=== PATIENT | male | born 1995 | race Caucasian/White ===

== ENCOUNTER 2017-11-14 21:49 | Inpatient (IN) | payer MEDICAID ==
[2017-11-14 22:07] VITALS: BP 134/60; PULSE 108; RESP 16; O2SAT 98
--- NOTE | 2017-11-14 22:29 | RADRPT ---
EXAM DATE/TIME: 11/14/2017 22:14 [facility] COMPARISON: No previous studies available for comparison. INDICATIONS : Seizure. RADIATION DOSE: 56.35 CTDIvol (mGy) MEDICAL HISTORY : None SURGICAL HISTORY : None. ENCOUNTER: Initial ACUITY: 1 day PAIN SCALE: 0/10 LOCATION: cranial TECHNIQUE: Multiple contiguous axial images were obtained of the head. Using automated exposure control and adj ustment of the mA and/or kV according to patient size, radiation dose was kept as low as reasonably a chievable to obtain optimal diagnostic quality images. DICOM format image data is available electro nically for review and comparison. FINDINGS: CEREBRUM: The ventricles are normal for age. No evidence of midline shift, mass lesion, hemorrhage or acute in farction. No extra-axial fluid collections are seen. POSTERIOR FOSSA: The cerebellum and brainstem are intact. The 4th ventricle is midline. The cerebellopontine angle i s unremarkable. EXTRACRANIAL: The visualized portion of the orbits is intact. SKULL: The calvaria is intact. No evidence of skull fracture. CONCLUSION: 1. Negative noncontrast CT brain. Rodolfo Medley MD on November 14, 2017 at 22:27 Board Certified Radiologist. This report was verified electronically.
[2017-11-14 22:40] VITALS: TEMP 97.9
--- NOTE | 2017-11-14 22:44 | RADRPT ---
EXAM DATE/TIME: 11/14/2017 22:14 [facility] COMPARISON: No previous studies available for comparison. INDICATIONS : Trauma, fall. Left eye bruising. RADIATION DOSE: 21.96 CTDIvol (mGy) MEDICAL HISTORY : None SURGICAL HISTORY : None. ENCOUNTER: Initial ACUITY: 1 day PAIN SCORE: 4/10 LOCATION: Left orbit. TECHNIQUE: Volumetric scanning of the orbits was performed. Using automated exposure control and adjustment of the mA and/or kV according to patient size, radiation dose was kept as low as reasonably achievable t o obtain optimal diagnostic quality images. DICOM format image data is available electronically for review and comparison. FINDINGS: There is focal soft tissue thickening adjacent to the lateral margin of the left orbital globe, prese ptal in location, measuring 8 mm. No indentation or deformity of the globe. The extraocular muscles , optic nerve, and retroconal fat is symmetric and normal in appearance. The bony structures about t he orbit are intact. No evidence of fracture. Inferior orbital wall is intact. CONCLUSION: 8mm area of soft tissue thickening adjacent to the lateral aspect of the preseptal left orbital globe . No fracture seen. Rodolfo Medley MD on November 14, 2017 at 22:40 Board Certified Radiologist. This report was verified electronically.
--- NOTE | 2017-11-14 22:46 | RADRPT ---
EXAM DATE/TIME: 11/14/2017 22:14 [facility] COMPARISON: No previous studies available for comparison. INDICATIONS : Trauma, fall. RADIATION DOSE: 26.90 CTDIvol (mGy) MEDICAL HISTORY : None SURGICAL HISTORY : None. ENCOUNTER: Initial ACUITY: 1 day PAIN SCALE: 0/10 LOCATION: neck TECHNIQUE: Volumetric scanning of the cervical spine was performed. Multiplanar reconstructions in the sagittal, coronal and oblique axial planes were performed. Using automated exposure control and adjustment o f the mA and/or kV according to patient size, radiation dose was kept as low as reasonably achievable to obtain optimal diagnostic quality images. DICOM format image data is available electronically f or review and comparison. FINDINGS: There is straightening of the cervical lordosis. Vertebral body height is maintained. No evidence o f spondylolisthesis. Posterior elements are normal alignment without evidence of locked or perched f acets. The spinous processes are intact. The atlantoaxial articulation is intact. C2-C3: No fracture seen. The neural foramen are patent. C3-C4: No fracture seen. The neural foramen are patent. C4-C5: No fracture seen. The neural foramen are patent. C5-C6: No fracture seen. The neural foramen are patent. C6-C7: No fracture seen. The neural foramen are patent. C7-T1: No fracture seen. The neural foramen are patent. CONCLUSION: Straightening of the cervical lordosis. Otherwise negative trauma CT cervical spine. Rodolfo Medley MD on November 14, 2017 at 22:42 Board Certified Radiologist. This report was verified electronically.
[2017-11-14] MEDS ORDERED: LORazepam 2 MG/ML VIAL ONE (23:20)
[2017-11-14 23:27] VITALS: BP 146/63; PULSE 107; RESP 16; O2SAT 96
--- NOTE | 2017-11-14 23:38 | PD ---
HPI Chief Complaint: Seizure Time Seen by Provider: 21:57 Travel History International Travel<30 days: No Contact w/Intl Traveler<30days: No Traveled to known affect area: No History of Present Illness HPI Patient is a 22-year-old male whose here on spring apparently he is friends were with him drinking all day and they did not see him for a while found him with a black eye intoxicated and sleeping hotel room that apparently they went back out to drink some more patient had another's witnessed seizure this time and comes the ER postictal confused c-collar. also has a new tattoo on his arm that he was unaware that he had but he is still postictal. There is a Tegaderm over the tattoo. Patient has the sign of trauma to his face and that is the only injury seen otherwise he is mildly lethargic from assuming that he is postictal CT head neck and face will be done to rule out any intracranial injury or cervical spine injury. PFSH Past Medical History Diminished Hearing: No Tetanus Vaccination: Unknown Past Surgical History Neurologic Surgery: Yes (seizure) Social History Alcohol Use: Yes Tobacco Use: No Substance Use: No Allergies-Medications (Allergen,Severity, Reaction): Coded Allergies: No Known Allergies (Verified Allergy, Unknown, 11/15/17) Reported Meds & Prescriptions Reported Meds & Active Scripts Active Reported Vimpat (Lacosamide) 200 Mg Tab 200 Mg PO BID Briviact (Brivaracetam) 100 Mg Tab 200 Mg PO BID Review of Systems ROS Limitations: Poor Historian, Other: (postictal) Except as stated in HPI: all other systems reviewed are Neg Physical Exam Narrative GENERAL: Patient's left eyelid is swollen purple discoloration SKIN: Warm and dry. HEAD: +traumatic apparently to the left orbit area .. Normocephalic. EYES: Pupils equal and round. No scleral icterus. No injection or drainage. ENT: No nasal bleeding or discharge. Mucous membranes pink and moist. NECK: Trachea midline. No JVD. CARDIOVASCULAR: Regular rate and rhythm. RESPIRATORY: No accessory muscle use. Clear to auscultation. Breath sounds equal bilaterally. GASTROINTESTINAL: Abdomen soft, non-tender, nondistended. Hepatic and splenic margins not palpable. MUSCULOSKELETAL: Extremities without clubbing, cyanosis, or edema. No obvious deformities. NEUROLOGICAL: Awake and alert. No obvious cranial nerve deficits. Motor grossly within normal limits. Five out of 5 muscle strength in the arms and legs. Normal speech. PSYCHIATRIC: Appropriate mood and affect; insight and judgment normal. Data Data Last Documented VS Vital Signs Date Time Temp Pulse Resp B/P (MAP) Pulse Ox O2 Delivery O2 Flow Rate FiO2 11/15/17 05:39 107 18 123/64 (83) 98 Nasal Cannula 2.00 11/14/17 22:[address] Brain W/O Iv Contrast(Rout) (11/14/17 ) Ct Cerv Spine W/O Contrast (11/14/17 ) Ct Orbits W/O Iv Contrast (11/14/17 ) Lorazepam Inj (Ativan Inj) (11/14/17 23:20) Ondansetron Inj (Zofran Inj) (11/15/17 05:31) Levetiracetam Inj (Keppra Inj) (11/15/17 06:00) Complete Blood Count With Diff (11/15/17 05:54) Comprehensive Metabolic Panel (11/15/17 05:54) Lipase (11/15/17 05:54) Magnesium (Mg) (11/15/17 05:54) Phosphorus (Po4) (11/15/17 05:54) Admit Order (Ed Use Only) (11/15/17 06:01) Place In Observation (11/15/17 ) Vital Signs (Adult) Q4H (11/15/17 05:57) Activity Bed Rest With Brp (11/15/17 ) Neuro Checks Q4H (11/15/17 05:57) Diet Regular Basic (11/15/17 Breakfast) Sodium Chloride 0.9% Flush (Ns Flush) (11/15/17 06:00) Sodium Chloride 0.9% Flush (Ns Flush) (11/15/17 09:00) Lorazepam Inj (Ativan Inj) (11/15/17 06:00) Acetaminophen (Tylenol) (11/15/17 06:00) Complete Blood Count With Diff (11/16/17 06:00) Alcohol (Ethanol) (11/15/17 05:57) Drug Screen, Random Urine (11/15/17 05:57) Consult Neurology (11/15/17 ) ^ Seizure Precautions (11/15/17 05:57) Levetiracetam (Keppra) (11/15/17 21:00) Creatine Kinase (Cpk) (11/15/17 05:54) CKMB (11/15/17 06:00) CKMB% (11/15/17 06:00) Labs Laboratory Tests Test 11/15/17 06:00 White Blood Count 21.6 TH/MM3 Red Blood Count 5.37 MIL/MM3 Hemoglobin 16.2 GM/DL Hematocrit 48.4 % Mean Corpuscular Volume 90.0 FL Mean Corpuscular Hemoglobin 30.3 PG Mean Corpuscular Hemoglobin Concent 33.6 % Red Cell Distribution Width 13.4 % Platelet Count 359 TH/MM3 Mean Platelet Volume 9.0 FL Neutrophils (%) (Auto) 78.6 % Lymphocytes (%) (Auto) 15.6 % Monocytes (%) (Auto) 4.9 % Eosinophils (%) (Auto) 0.5 % Basophils (%) (Auto) 0.4 % Neutrophils # (Auto) 16.9 TH/MM3 Lymphocytes # (Auto) 3.4 TH/MM3 Monocytes # (Auto) 1.1 TH/MM3 Eosinophils # (Auto) 0.1 TH/MM3 Basophils # (Auto) 0.1 TH/MM3 CBC Comment AUTO DIFF Differential Total Cells Counted 100 Neutrophils % (Manual) 68 % Band Neutrophils % 2 % Lymphocytes % 14 % Monocytes % 7 % Eosinophils % 1 % Neutrophils # (Manual) 16.8 TH/MM3 Metamyelocytes 5 % Myelocytes 3 % Differential Comment FINAL DIFF MANUAL Platelet Estimate NORMAL Platelet Morphology Comment NORMAL Blood Urea Nitrogen 10 MG/DL Creatinine 1.34 MG/DL Random Glucose 154 MG/DL Total Protein 8.1 GM/DL Albumin 4.6 GM/DL Calcium Level 8.5 MG/DL Phosphorus Level 5.3 MG/DL Magnesium Level 2.9 MG/DL Alkaline Phosphatase 101 U/L Aspartate Amino Transf (AST/SGOT) 75 U/L Alanine Aminotransferase (ALT/SGPT) 79 U/L Total Bilirubin 0.2 MG/DL Sodium Level 136 MEQ/L Potassium Level 3.6 MEQ/L Chloride Level 99 MEQ/L Carbon Dioxide Level 11.9 MEQ/L Anion Gap 25 MEQ/L Estimat Glomerular Filtration Rate 67 ML/MIN Total Creatine Kinase 2264 U/L Creatine Kinase MB 2.5 NG/ML Creatine Kinase MB % 0.1 % Lipase 74 U/L Valproic Acid (Depakene) Level 5 MCG/ML Ethyl Alcohol Level LESS THAN 3 MG/DL MDM Medical Decision Making Medical Screen Exam Complete: Yes Emergency Medical Condition: Yes Differential Diagnosis recurrent seizure for epilepsy vs etoh withdrawal stimulantion of seizure vs head trauma induction of seizures ,other electrolyte imbalnce of seizures recrrunt , med non compliance causing seizure Narrative Course CT HEAD FACE CERVICAL ON ARRIVAL TO R/O trauma intracranial injury causing seizures , observed and given ativan when he seized again in the ER , then loaded with keppra and admitted for observation to assure no status epilepticus , I ordered labs to rule out electrolyte imbalance and cpk on admission to rule out muscle breakdown from recurrent seizures admit observation Diagnosis Primary Impression: Recurrent seizures Admitting Information Admitting Physician Requests: Observation Scripts Divalproex ER (Depakote ER) 500 Mg Dung 500 MG PO HS for Seizure Control, #30 TAB Prov: Bryanna Dodson PA-C 11/16/17 Morteza Ward MD Nov 14, 2017 23:38
[2017-11-15] VITALS (9 sets, daily range): BP systolic 116–143; BP diastolic 57–98; PULSE 83–108; RESP 16–20; TEMP 97.2–101.2; O2SAT 97–99
[2017-11-15] MEDS ORDERED: ONDANSETRON HCL 4 MG/2 ML VIAL ONE (05:31)
[2017-11-15] MEDS ORDERED: levETIRAcetam INJ 500 MG in SODIUM CHLORIDE 0.9% INJ 100 ML IV ONE (06:00)
[2017-11-15] MEDS ORDERED: LORazepam 2 MG/ML VIAL IV PUSH PRN (06:00)
[2017-11-15] MEDS ORDERED: SODIUM CHLORIDE 0.9% FLUSH 10 ML FLUSH IV FLUSH PRN (06:00)
[2017-11-15 06:10] LABS: AUTOMATED NEUTROPHIL # 16.9 TH/MM3 (1.8-7.7); BASOPHIL # 0.1 TH/MM3 (0-0.2); BASOPHIL % 0.4 % (0.0-2.0); EOSINOPHIL # 0.1 TH/MM3 (0-0.4); EOSINOPHIL % 0.5 % (0.0-4.0); HEMATOCRIT 48.4 % (39.0-51.0); HEMOGLOBIN 16.2 GM/DL (13.0-17.0); LYMPH % 15.6 % (9.0-44.0); LYMPHOCYTE # 3.4 TH/MM3 (1.0-4.8); MEAN CORPUSCULAR HEMOGLOBIN 30.3 PG (27.0-34.0); MEAN CORPUSCULAR HGB CONC 33.6 % (32.0-36.0); MONO % 4.9 % (0.0-8.0); MONOCYTE # 1.1 TH/MM3 (0-0.9); NEUT % 78.6 % (16.0-70.0); PLATELET COUNT 359 TH/MM3 (150-450); RED BLOOD COUNT 5.37 MIL/MM3 (4.50-5.90); RED CELL DISTRIBUTION WIDTH 13.4 % (11.6-17.2); WHITE BLOOD COUNT 21.6 TH/MM3 (4.0-11.0)
[2017-11-15 06:44] LABS: PHOSPHORUS 5.3 MG/DL (2.5-4.9)
[2017-11-15 06:47] LABS: ALBUMIN 4.6 GM/DL (3.4-5.0); ALT (GPT) 79 U/L (12-78); AST (GOT) 75 U/L (15-37); BICARBONATE 11.9 MEQ/L (21.0-32.0); BLOOD UREA NITROGEN 10 MG/DL (7-18); CALCIUM 8.5 MG/DL (8.5-10.1); CHLORIDE 99 MEQ/L (98-107); CREATININE 1.34 MG/DL (0.60-1.30); GLOMERULAR FILTRATION RATE 67 ML/MIN (>89); GLUCOSE,RANDOM 154 MG/DL (74-106); MAGNESIUM 2.9 MG/DL (1.5-2.5); SODIUM (NA) 136 MEQ/L (136-145)
[2017-11-15] MEDS ORDERED: BRIV1TAB7 PO (06:57)
[2017-11-15 06:58] LABS: ALKALINE PHOSPHATASE 101 U/L (45-117); TOTAL BILIRUBIN ADULT 0.2 MG/DL (0.2-1.0); TOTAL PROTEIN 8.1 GM/DL (6.4-8.2)
[2017-11-15] MEDS ORDERED: VIMP200T PO (06:59)
[2017-11-15 07:01] LABS: BANDS 2 % (0-6); LYMPHOCYTES 14 % (9-44); METAMYELOCYTES 5 % (0-1); MONOCYTES 7 % (0-8); MYELOCYTES 3 % (0-0); NEUTROPHIL # MANUAL DIFF 16.8 TH/MM3 (1.8-7.7); POLYS (SEG NEUTROPHILS) 68 % (16-70)
[2017-11-15] MEDS ORDERED: DIVALPROEX SODIUM E.R. 500 MG TAB PO STA (08:17)
[2017-11-15] MEDS: SODIUM CHLOR 0.9% 1000 ML INJ 1,000 ML IV SCH ×2 (08:57→19:15)
[2017-11-15] MEDS: ACETAMINOPHEN 325 MG TAB PO PRN ×2 (08:57→22:02)
[2017-11-15] MEDS ORDERED: BRIVARACETAM 200 MG PO SCH ×2 (09:00)
[2017-11-15] MEDS ORDERED: [UNRECOGNIZED DRUG - OTHER] PO SCH (09:00)
--- NOTE | 2017-11-15 09:19 | MB ---
cc: Victor Manuel Patel MD DATE OF CONSULT: 11/15/2017 HISTORY OF PRESENT ILLNESS: He is a 22-year-old left-handed man with a history of seizures for the last few years, per his grandmother who lives in [place]. He generally lives in [place] but is here on spring. Yesterday, he was drinking on the beach with friends. Then he was found blacked out in the hotel room and had a bruise over the left eye. He then went back out apparently and was drinking again and had a witnessed seizure and then was brought to the hospital. He does admit to smoking some marijuana. He generally drinks socially but is here on spring so he is drinking more excessively than normal. He lives with his grandparents in [place], although he does have some family in [place]. His family history is negative for cancer or stroke. He said that his mother does have a history of seizures. He was following with a neurologist up in [place] but has had controlled seizures since onset. His last seizure was 10/16 and before that 10/10. He is scheduled to go to the [facility] next week for an inpatient study. He is currently on brivaracetam 200 mg twice a day and Vimpat 200 mg twice a day. He does not remember most of the events from yesterday and states that he did feel like he bit his tongue, however. MEDICATIONS AT HOME: Already listed, the brivaracetam 200 mg twice a day and Vimpat twice a day. VITAL SIGNS: Most recent, he is febrile 101.2, heart rate 108, blood pressure 124/59, pulse ox 98% on room air. On exam, heart rate regular rate and rhythm. I do not detect a murmur, carotid bruit. Visual liang were full. Extraocular movements are intact without nystagmus. Face is symmetric. Tongue is midline. There is no drift. Strength is 5/5 in the upper and lower extremities bilaterally. DTRs were 2+ in the bilateral lower extremities, 1+ in the upper extremities bilaterally. Toes withdrew bilaterally. There was clonus. Tone was normal throughout. Pinprick and vibratory senses intact throughout. He is not intact on finger to nose. Did not observe the gait. He is not aphasic at this time. He just takes a little while to answer questions as he states he is very tired. LABORATORIES: CBC: White count is 21.6, otherwise normal. UA tox screen is negative. CMP: Creatinine 1.34, AST 75, ALT 79. Creatine kinase 2264. IMAGING: CT of the cervical spine was negative. CT of the brain is negative. The orbit CT shows no fracture of the left eye. IMPRESSION: He is having breakthrough seizures although he has not had his medications changed in over a year, he states. We will add on Depakote and also do an EEG and MRI of the brain. Will also add on some fluids with the elevated CPK. We will keep him overnight as his white count is elevated and his temperature. Dictated by KJ Knight MD SHANELLE Humphrey/NATALYA , 08:21 AM , 09:06 AM
[2017-11-15] MEDS: SODIUM CHLORIDE 0.9% FLUSH 10 ML FLUSH IV FLUSH SCH ×2 (09:21→21:00)
[2017-11-15] MEDS: LACOSAMIDE 100 MG TAB PO SCH ×2 (09:21→21:59)
[2017-11-15] MEDS ORDERED: GADODIAMIDE PF 287 MG/ML 5 ML VIAL (for RAD MRI) IV PUSH ONE (12:00)
--- NOTE | 2017-11-15 12:52 | HHI.HP ---
HPI Service [facility] Primary Care Physician Unknown Admission Diagnosis recurrent seizures Diagnoses: Chief Complaint: seizures Travel History International Travel<30 Days: No Contact w/Intl Traveler <30 Da: No Traveled to Known Affected Are: No Sepsis Criteria SIRS Criteria (2 or more): Temp > 100.9 or < 96.8, Heart rate over 90, WBC > 12555, < 4000 or > 10% bands Criteria Outcome: Meets SIRS criteria History of Present Illness Written by Bryanna Dodson, acting as scribe for Dr. Villarreal on 11/15/17 at 12:51. 22-year-old male with history of seizures presents with seizure activity x2. The patient is visiting from [place] for spring. He has been drinking alcohol most of the week. Yesterday his friends reported he was sleeping in the room most of the day. They found him with a black eye. His friends were able to wake him to go out to dinner, then later had a witnessed tonic clonic seizure. His friends report patient was confused after the seizure. He was reportedly postictal upon arrival to the ED and noted to have tongue ecchymosis. He is now AAOx4. He reports compliance with his seizure medications. Last seizure 1 month ago while he was in the gym, no medication adjustments at that time. He reports nausea and vomiting x3 last night. He reports recently he has been feeling well, and denies any recent headache, neck pain, cough, congestion, fever/chills, chest pain, abdominal pain, nausea/vomiting, or urinary complaints. He follows with a neurologist in [place]. Review of Systems Except as stated in HPI: all other systems reviewed are Neg Past Family Social History Past Medical History Seizures Past Surgical History Knee surgery Reported Medications Vimpat (Lacosamide) 200 Mg Tab 200 Mg PO BID Briviact (Brivaracetam) 100 Mg Tab 200 Mg PO BID Allergies: Coded Allergies: No Known Allergies (Verified Allergy, Unknown, 11/15/17) Active Ordered Medications Current Medications Medications (Trade) Dose Ordered Sig/Yanira Route Start Time Stop Time Status Last Admin (NS Flush) 2 ml UNSCH PRN IV FLUSH 3/9/18 06:00 (NS Flush) 2 ml BID IV FLUSH 11/15/17 09:00 11/15/17 09:21 (Ativan Inj) 2 mg Q10M PRN IV PUSH 11/15/17 06:00 11/15/17 06:17 (Tylenol) 650 mg Q4H PRN PO 11/15/17 06:00 11/15/17 08:57 (Vimpat) 200 mg BID PO 11/15/17 09:00 11/15/17 09:21 Non-Formulary Medication PTOWN-BRIVARACETAM 200MG PO DAILY DAILY PO 11/15/17 09:00 Future Hold (Depakote Er) 500 mg HS PO 11/15/17 21:00 Sodium Chloride 1,000 ml @ 100 mls/hr Q10H IV 11/15/17 09:00 11/15/17 08:57 Family History Mother with epilepsy Social History Denies tobacco use Drinks alcohol, mostly social binge drinking, but not every day Denies any illicit drug use Physical Exam Vital Signs Vital Signs Date Time Temp Pulse Resp B/P (MAP) Pulse Ox O2 Delivery O2 Flow Rate FiO2 11/15/17 11:38 83 20 136/69 (91) 97 Room Air 11/15/17 10:00 18 11/15/17 07:48 101.2 108 20 124/59 (80) 98 11/15/17 05:39 107 18 123/64 (83) 98 Nasal Cannula 2.00 11/15/17 01:43 101 16 118/57 (77) 98 Nasal Cannula 2.00 11/15/17 00:46 98 16 116/67 (83) 98 Nasal Cannula 2.00 11/14/17 23:27 107 16 146/63 (90) 96 Nasal Cannula 2.00 11/14/17 22:40 97.9 11/14/17 22:15 Room Air 11/14/17 22:07 108 16 134/60 (84) 98 Room Air Physical Exam GENERAL: Well-nourished, well-developed young male patient in [facility]. SKIN: Warm and dry. Skin desquamation/peeling on the back. Sunburnt skin throughout. HEAD: Normocephalic. Atraumatic. EYES: Pupils equal and round. EOMI. Left periorbital ecchymosis, mostly at left upper eyelid. No scleral icterus. No injection or drainage. ENT: No nasal bleeding or discharge. Mucous membranes pink and moist. NECK: Supple. Trachea midline. CARDIOVASCULAR: Regular rate and rhythm. S1, S2 noted. No murmur appreciated. RESPIRATORY: No accessory muscle use. Clear to auscultation. Breath sounds equal bilaterally. GASTROINTESTINAL: Abdomen soft, non-tender, nondistended. Normoactive bowel sounds x4. MUSCULOSKELETAL: No obvious deformities. Extremities without clubbing, cyanosis , or edema. NEUROLOGICAL: Awake and alert. No obvious cranial nerve deficits. Motor grossly within normal limits. 5/5 muscle strength in bilateral upper and lower extremities. Normal speech. PSYCHIATRIC: Appropriate mood and affect; insight and judgment normal. Laboratory Laboratory Tests Test 11/15/17 06:00 11/15/17 07:00 White Blood Count 21.6 Red Blood Count 5.37 Hemoglobin 16.2 Hematocrit 48.4 Mean Corpuscular Volume 90.0 Mean Corpuscular Hemoglobin 30.3 Mean Corpuscular Hemoglobin Concent 33.6 Red Cell Distribution Width 13.4 Platelet Count 359 Mean Platelet Volume 9.0 Neutrophils (%) (Auto) 78.6 Lymphocytes (%) (Auto) 15.6 Monocytes (%) (Auto) 4.9 Eosinophils (%) (Auto) 0.5 Basophils (%) (Auto) 0.4 Neutrophils # (Auto) 16.9 Lymphocytes # (Auto) 3.4 Monocytes # (Auto) 1.1 Eosinophils # (Auto) 0.1 Basophils # (Auto) 0.1 CBC Comment AUTO DIFF Differential Total Cells Counted 100 Neutrophils % (Manual) 68 Band Neutrophils % 2 Lymphocytes % 14 Monocytes % 7 Eosinophils % 1 Neutrophils # (Manual) 16.8 Metamyelocytes 5 Myelocytes 3 Differential Comment FINAL DIFF MANUAL Platelet Estimate NORMAL Platelet Morphology Comment NORMAL Blood Urea Nitrogen 10 Creatinine 1.34 Random Glucose 154 Total Protein 8.1 Albumin 4.6 Calcium Level 8.5 Phosphorus Level 5.3 Magnesium Level 2.9 Alkaline Phosphatase 101 Aspartate Amino Transf (AST/SGOT) 75 Alanine Aminotransferase (ALT/SGPT) 79 Total Bilirubin 0.2 Sodium Level 136 Potassium Level 3.6 Chloride Level 99 Carbon Dioxide Level 11.9 Anion Gap 25 Estimat Glomerular Filtration Rate 67 Total Creatine Kinase 2264 Creatine Kinase MB 2.5 Creatine Kinase MB % 0.1 Lipase 74 Valproic Acid (Depakene) Level 5 Ethyl Alcohol Level LESS THAN 3 Urine Opiates Screen NEG Urine Barbiturates Screen NEG Urine Amphetamines Screen NEG Urine Benzodiazepines Screen NEG Urine Cocaine Screen NEG Urine Cannabinoids Screen NEG Result Diagram: 11/15/17 0600 11/15/17 0600 Imaging Last Impressions Brain MRI 11/15/17 0000 Signed Impressions: Service Date/Time: Wednesday, November 15, 2017 12:09 - CONCLUSION: 1. Normal examination. Juan David Kearney MD Orbit CT 11/14/17 0000 Signed Impressions: Service Date/Time: November 22:14 - CONCLUSION: 8mm area of soft tissue thickening adjacent to the lateral aspect of the preseptal left orbital globe. No fracture seen. Rodolfo Medley MD Head CT 11/14/17 0000 Signed Impressions: Service Date/Time: November 22:14 - CONCLUSION: 1. Negative noncontrast CT brain. Rodolfo Medley MD Cervical Spine CT 11/14/17 0000 Signed Impressions: Service Date/Time: November 22:14 - CONCLUSION: Straightening of the cervical lordosis. Otherwise negative trauma CT cervical spine. Rodolfo Medley MD Caprini VTE Risk Assessment Caprini VTE Risk Assessment: No/Low Risk (score <= 1) Caprini Risk Assessment Model Point Value = 1 Point Value = 2 Point Value = 3 Point Value = 5 Age 41-60 Minor surgery BMI > 25 kg/m2 Swollen legs Varicose veins or History of unexplained or recurrent spontaneous Oral contraceptives or hormone replacement Sepsis (< 1 month) Serious lung disease, including pneumonia (< 1 month) Abnormal pulmonary function Acute myocardial infarction Congestive heart failure (< 1 month) History of inflammatory bowel disease Medical patient at bed rest Age 61-74 Arthroscopic surgery Major open surgery (> 45 min) Laparoscopic surgery (> 45 min) Malignancy Confined to bed (> 72 hours) Immobilizing plaster cast Central venous access Age >= 75 History of VTE Family history of VTE Factor V Leiden Prothrombin [id number] Lupus anticoagulant Anticardiolipin antibodies Elevated serum homocysteine Heparin-induced thrombocytopenia Other congenital or acquired thrombophilia Stroke (< 1 month) Elective arthroplasty Hip, pelvis, or leg fracture Acute spinal cord injury (< 1 month) Prophylaxis Regimen Total Risk Factor Score Risk Level Prophylaxis Regimen 0-1 Low Early ambulation 2 Moderate Order ONE of the following: *Sequential Compression Device (SCD) *Heparin 5000 units SQ BID 3-4 Higher Order ONE of the following medications: *Heparin 5000 units SQ TID *Enoxaparin/Lovenox 40 mg SQ daily (WT < 150 kg, CrCl > 30 mL/min) *Enoxaparin/Lovenox 30 mg SQ daily (WT < 150 kg, CrCl > 10-29 mL/min) *Enoxaparin/Lovenox 30 mg SQ BID (WT < 150 kg, CrCl > 30 mL/min) AND/OR *Sequential Compression Device (SCD) 5 or more Highest Order ONE of the following medications: *Heparin 5000 units SQ TID (Preferred with Epidurals) *Enoxaparin/Lovenox 40 mg SQ daily (WT < 150 kg, CrCl > 30 mL/min) *Enoxaparin/Lovenox 30 mg SQ daily (WT < 150 kg, CrCl > 10-29 mL/min) *Enoxaparin/Lovenox 30 mg SQ BID (WT < 150 kg, CrCl > 30 mL/min) AND *Sequential Compression Device (SCD) Assessment and Plan Problem List: (1) Recurrent seizures ICD Code: G40.909 - Epilepsy, unspecified, not intractable, without status epilepticus (2) Rhabdomyolysis ICD Code: M62.82 - Rhabdomyolysis (3) SIRS (systemic inflammatory response syndrome) ICD Code: R65.10 - Systemic inflammatory response syndrome (SIRS) of non- infectious origin without acute organ dysfunction Assessment and Plan 22-year-old male with history of seizures presents with seizure activity x2. The patient is visiting from [place] for spring. Recurrent Seizures with hx of Seizure Disorder: suspect exacerbated by recent alcohol binge. Patient reports compliance with medications. -Head CT and Brain MRI images reviewed, no acute findings -C-spine CT with no acute findings -Left Orbit CT with 8mm area of soft tissue thickening adjacent to lateral aspect of preseptal left orbital globe; no fracture -EEG ordered -Neurology consulted -Continue patient's Briviact and Vimpat -Depakote 500mg hs added by neurology -Neuro checks, seizure precautions -Patient counseled on seizure precautions; patient does not drive Rhabdomyolysis: suspect secondary to seizures -CPK 2264 --> 4458 -Give IVF -Check UA SIRS: patient meets SIRS criteria with WBC 21.6, temp 101.2, tachycardia HR 108. Need to rule out infectious source however no symptoms to suggest. SIRS may be secondary to seizure activity. -Check UA and CXR -Monitor CBC and vitals Alcohol Use: chronic -counseled on cessation, especially with seizures as above Transaminitis: no previous labs to compare. Suspect secondary to recent alcohol use -continue IVF -avoid alcohol -LFTs trending down DVT Prophylaxis: teds/SCDs Discussed Condition With This note was transcribed by giorgio Dodson. I, Dr. Ritchie Villarreal personally performed the history, physical exam, and medical decision making; and confirmed the accuracy of the information in the transcribed note. Authenticated by Dr. Ritchie Villarreal on 11/15/17 at 12:54. Bryanna Dodson PA-C Nov 15, 2017 12:52 Ritchie Villarreal MD Nov 15, 2017 12:54
[2017-11-15 13:34] LABS: AUTOMATED NEUTROPHIL # 14.6 TH/MM3 (1.8-7.7); BASOPHIL % 0.1 % (0.0-2.0); HEMOGLOBIN 14.5 GM/DL (13.0-17.0); LYMPHOCYTE # 1.4 TH/MM3 (1.0-4.8); MEAN CELL VOLUME 86.3 FL (80.0-100.0); MEAN CORPUSCULAR HEMOGLOBIN 29.8 PG (27.0-34.0); MEAN CORPUSCULAR HGB CONC 34.5 % (32.0-36.0); MEAN PLATELET VOLUME 8.3 FL (7.0-11.0); MONO % 11.1 % (0.0-8.0); NEUT % 80.8 % (16.0-70.0); PLATELET COUNT 305 TH/MM3 (150-450); RED BLOOD COUNT 4.86 MIL/MM3 (4.50-5.90); RED CELL DISTRIBUTION WIDTH 13.2 % (11.6-17.2); WHITE BLOOD COUNT 18.1 TH/MM3 (4.0-11.0)
[2017-11-15 13:56] LABS: ALBUMIN 4.1 GM/DL (3.4-5.0); ALT (GPT) 64 U/L (12-78); AST (GOT) 72 U/L (15-37); BICARBONATE 21.3 MEQ/L (21.0-32.0); BLOOD UREA NITROGEN 13 MG/DL (7-18); CALCIUM 7.5 MG/DL (8.5-10.1); CHLORIDE 105 MEQ/L (98-107); CREATININE 1.29 MG/DL (0.60-1.30); GLOMERULAR FILTRATION RATE 70 ML/MIN (>89); GLUCOSE,RANDOM 79 MG/DL (74-106); MAGNESIUM 2.6 MG/DL (1.5-2.5); SODIUM (NA) 137 MEQ/L (136-145)
--- NOTE | 2017-11-15 14:07 | RADRPT ---
EXAM DATE/TIME: 11/15/2017 12:09 [facility] COMPARISON: No previous studies available for comparison. INDICATIONS : Seizures. CONTRAST: 14 cc Omniscan (gadodiamide) IV MEDICAL HISTORY : Seizures. SURGICAL HISTORY : None. ENCOUNTER: Initial ACUITY: 1 day PAIN SCORE: 0/10 LOCATION: cranial TECHNIQUE: Multiplanar, multisequence MRI of the brain was performed both prior to and following the administrat ion of paramagnetic contrast. FINDINGS: CEREBRUM: The ventricles are normal for age. No evidence of midline shift, mass lesion, hemorrhage or acute in farction. No extraaxial fluid collections are seen. The pituitary gland and suprasellar cistern are normal in configuration. WHITE MATTER: No significant signal abnormalities are seen in the white matter. POSTERIOR FOSSA: The cerebellum and brainstem are intact. The 4th ventricle is midline. The cerebellopontine angle is unremarkable. The cerebellar tonsils are normal in position. DIFFUSION IMAGING: No focal areas of restricted diffusion are seen. No evidence of acute infarction. EXTRACRANIAL: The visualized portions of the orbits and paranasal sinuses are unremarkable. POST-CONTRAST: No abnormal areas of parenchymal or dural enhancement. No evidence of blood-brain barrier breakdown. CONCLUSION: 1. Normal examination. Juan David Kearney MD on November 15, 2017 at 14:01 Board Certified Radiologist. This report was verified electronically.
[2017-11-15 14:08] LABS: ALKALINE PHOSPHATASE 83 U/L (45-117); TOTAL BILIRUBIN ADULT 0.8 MG/DL (0.2-1.0); TOTAL PROTEIN 7.3 GM/DL (6.4-8.2)
--- NOTE | 2017-11-15 15:08 | RADRPT ---
EXAM DATE/TIME: 11/15/2017 14:57 [facility] COMPARISON: No previous studies available for comparison. INDICATIONS : Fever. Recurrent seizures. MEDICAL HISTORY : None. SURGICAL HISTORY : None. ENCOUNTER: Initial ACUITY: 1 day PAIN SCORE: 0/10 LOCATION: Bilateral chest FINDINGS: A single view of the chest demonstrates the lungs to be symmetrically aerated without evidence of mas s, infiltrate or effusion. The cardiomediastinal contours are unremarkable. Osseous structures are intact. CONCLUSION: No acute disease. Galo Kearney MD FACR on November 15, 2017 at 15:06 Board Certified Radiologist. This report was verified electronically.
--- NOTE | 2017-11-15 20:45 | MG ---
cc: Victor Manuel Patel MD A 22-year-old man, spring, had a few beers, 2 witnessed seizures. Ramses Ruth, Oneil Aranda. Diffuse 4 Hz slowing is noted. Some K complexes are seen which are synchronous and symmetric. Hyperventilation is performed without significant change in the background although the patient does arouse during it but then goes back into stage II sleep fairly quickly. Photic stimulation is performed without significant posterior driving. IMPRESSION: A normal stage II sleep electroencephalogram. No evidence for a focal diffuse abnormality. Victor Manuel Patel MD DJM/rt , 08:22 PM , 08:43 PM
[2017-11-15] MEDS ORDERED: levETIRAcetam 500 MG TAB PO SCH (21:00)
[2017-11-15] MEDS: NYSTAT/DIPHENHY/LIDO MOUTHWASH (Adult) 120ML SWISH-SWAL SCH (21:58)
[2017-11-15] MEDS: DIVALPROEX SODIUM E.R. 500 MG TAB PO SCH (21:59)
[2017-11-16] VITALS (7 sets, daily range): BP systolic 128–147; BP diastolic 63–89; PULSE 68–87; RESP 16–18; TEMP 97.4–98.6; O2SAT 8–99
[2017-11-16] MEDS: SODIUM CHLOR 0.9% 1000 ML INJ 1,000 ML IV SCH (01:48)
[2017-11-16 05:09] LABS: AUTOMATED NEUTROPHIL # 6.6 TH/MM3 (1.8-7.7); BASOPHIL % 0.3 % (0.0-2.0); EOSINOPHIL % 0.4 % (0.0-4.0); HEMATOCRIT 40.2 % (39.0-51.0); LYMPH % 23.2 % (9.0-44.0); LYMPHOCYTE # 2.3 TH/MM3 (1.0-4.8); MEAN CELL VOLUME 85.9 FL (80.0-100.0); MEAN CORPUSCULAR HEMOGLOBIN 29.9 PG (27.0-34.0); MEAN CORPUSCULAR HGB CONC 34.9 % (32.0-36.0); MEAN PLATELET VOLUME 8.2 FL (7.0-11.0); MONO % 10.5 % (0.0-8.0); MONOCYTE # 1.1 TH/MM3 (0-0.9); NEUT % 65.6 % (16.0-70.0); PLATELET COUNT 240 TH/MM3 (150-450); RED BLOOD COUNT 4.68 MIL/MM3 (4.50-5.90); RED CELL DISTRIBUTION WIDTH 13.1 % (11.6-17.2); WHITE BLOOD COUNT 10.1 TH/MM3 (4.0-11.0)
[2017-11-16 05:38] LABS: ALBUMIN 3.4 GM/DL (3.4-5.0); ALT (GPT) 65 U/L (12-78); AST (GOT) 128 U/L (15-37); BICARBONATE 24.6 MEQ/L (21.0-32.0); BLOOD UREA NITROGEN 8 MG/DL (7-18); CALCIUM 8.1 MG/DL (8.5-10.1); CHLORIDE 110 MEQ/L (98-107); CREATININE 0.83 MG/DL (0.60-1.30); GLOMERULAR FILTRATION RATE 116 ML/MIN (>89); GLUCOSE,RANDOM 81 MG/DL (74-106); MAGNESIUM 2.2 MG/DL (1.5-2.5); SODIUM (NA) 142 MEQ/L (136-145)
[2017-11-16 05:59] LABS: ALKALINE PHOSPHATASE 70 U/L (45-117)
[2017-11-16 06:02] LABS: TOTAL BILIRUBIN ADULT 0.8 MG/DL (0.2-1.0); TOTAL PROTEIN 6.3 GM/DL (6.4-8.2)
--- NOTE | 2017-11-16 07:37 | HHI.PR ---
Subjective Remarks Follow-up seizure and rhabdomyolysis. Patient has no complaints he wants to go home. Seen with family. Discussed with nursing Objective Vitals Vital Signs Date Time Temp Pulse Resp B/P (MAP) Pulse Ox O2 Delivery O2 Flow Rate FiO2 11/16/17 03:06 98.6 72 18 135/82 (99) 98 11/16/17 00:03 98.2 73 18 139/75 (96) 97 11/15/17 22:08 Room Air 11/15/17 21:00 99.2 91 18 143/98 (113) 98 11/15/17 17:53 Room Air 11/15/17 17:53 98.6 83 18 132/65 (87) 97 11/15/17 16:28 97.2 91 18 128/61 (83) 99 11/15/17 16:09 72 18 134/70 (91) 97 11/15/17 11:38 83 20 136/69 (91) 97 Room Air 11/15/17 10:00 18 11/15/17 07:48 101.2 108 20 124/59 (80) 98 I/O 11/15/17 11/15/17 11/15/17 11/16/17 11/16/17 11/16/17 07:00 15:00 23:00 07:00 15:00 23:00 Intake Total 100 ml 480 ml Balance 100 ml 480 ml Intake Oral 480 ml IV Total 100 ml # Voids 2 Result Diagram: 11/16/17 0400 11/16/17 0400 Imaging Last Impressions Chest X-Ray 11/15/17 0000 Signed Impressions: Service Date/Time: Wednesday, November 15, 2017 14:57 - CONCLUSION: No acute disease. Galo Kearney MD FACR Brain MRI 11/15/17 0000 Signed Impressions: Service Date/Time: Wednesday, November 15, 2017 12:09 - CONCLUSION: 1. Normal examination. Juan David Kearney MD Orbit CT 11/14/17 0000 Signed Impressions: Service Date/Time: November 22:14 - CONCLUSION: 8mm area of soft tissue thickening adjacent to the lateral aspect of the preseptal left orbital globe. No fracture seen. Rodolfo Medley MD Head CT 11/14/17 0000 Signed Impressions: Service Date/Time: November 22:14 - CONCLUSION: 1. Negative noncontrast CT brain. Rodolfo Medley MD Cervical Spine CT 11/14/17 0000 Signed Impressions: Service Date/Time: November 22:14 - CONCLUSION: Straightening of the cervical lordosis. Otherwise negative trauma CT cervical spine. Rodolfo Medley MD Objective Remarks GENERAL: Well-nourished, well-developed young male patient in [facility]. SKIN: Warm and dry. Skin desquamation/peeling on the back. Sunburnt skin throughout. EYES: Pupils equal and round. EOMI. Left periorbital ecchymosis, mostly at left upper eyelid. No scleral icterus. No injection or drainage. CARDIOVASCULAR: Regular rate and rhythm. S1, S2 noted. No murmur appreciated. RESPIRATORY: No accessory muscle use. Clear to auscultation. Breath sounds equal bilaterally. GASTROINTESTINAL: Abdomen soft, non-tender, nondistended. Normoactive bowel sounds x4. MUSCULOSKELETAL: No obvious deformities. Extremities without clubbing, cyanosis , or edema. NEUROLOGICAL: Awake and alert. No obvious cranial nerve deficits. Motor grossly within normal limits. 5/5 muscle strength in bilateral upper and lower extremities. Normal speech. PSYCHIATRIC: Appropriate mood and affect; insight and judgment normal. Procedures none A/P Problem List: (1) Recurrent seizures ICD Code: G40.909 - Epilepsy, unspecified, not intractable, without status epilepticus (2) Rhabdomyolysis ICD Code: M62.82 - Rhabdomyolysis (3) SIRS (systemic inflammatory response syndrome) ICD Code: R65.10 - Systemic inflammatory response syndrome (SIRS) of non- infectious origin without acute organ dysfunction Assessment and Plan 22-year-old male with history of seizures presents with seizure activity x2. The patient is visiting from [place] for spring. Recurrent Seizures with hx of Seizure Disorder: suspect exacerbated by recent alcohol binge. Patient reports compliance with medications. -Head CT and Brain MRI images reviewed, no acute findings -C-spine CT with no acute findings -Left Orbit CT with 8mm area of soft tissue thickening adjacent to lateral aspect of preseptal left orbital globe; no fracture -EEG negative -Neurology consulted -Continue patient's Briviact and Vimpat -Depakote 500mg hs added by neurology -Neuro checks, seizure precautions -Patient counseled on seizure precautions; patient does not drive Rhabdomyolysis: suspect secondary to seizures. This is worse. Will change to sodium bicarb infusion and increase IV rate to 150 cc an hour. Repeat BMP and CK in the morning -Check UA SIRS: patient meets SIRS criteria with WBC 21.6, temp 101.2, tachycardia HR 108. Need to rule out infectious source however no symptoms to suggest. SIRS may be secondary to seizure activity. Resolved -Check UA. Negative CXR -Monitor CBC and vitals Alcohol Use: chronic -counseled on cessation, especially with seizures as above Transaminitis: no previous labs to compare. Suspect secondary to recent alcohol use and rhabdomyolysis -continue IVF -avoid alcohol -LFTs worse DVT Prophylaxis: teds/SCDs Discharge Planning Not ready for discharge with worsening rhabdomyolysis Ritchie Villarreal MD Nov 16, 2017 07:37
[2017-11-16] MEDS: SODIUM CHLORIDE 0.9% FLUSH 10 ML FLUSH IV FLUSH SCH ×2 (09:00→20:20)
[2017-11-16] MEDS: LACOSAMIDE 100 MG TAB PO SCH ×2 (09:24→20:19)
[2017-11-16] MEDS: NYSTAT/DIPHENHY/LIDO MOUTHWASH (Adult) 120ML SWISH-SWAL SCH ×4 (09:24→20:20)
[2017-11-16] MEDS: SODIUM BICARBONATE 8.4% INJ 100 MEQ, POTASSIUM CHLORIDE INJ 20 MEQ in SODIUM CHLOR 0.45... IV SCH ×2 (09:48→18:28)
[2017-11-16] MEDS ORDERED: INFLUENZA VIRUS VACCINE (QUADRIVALENT) 0.5 ML SYR IM ONE (10:00)
--- NOTE | 2017-11-16 12:26 | HHI.PR ---
Objective Vital Signs Date Time Temp Pulse Resp B/P (MAP) Pulse Ox O2 Delivery O2 Flow Rate FiO2 11/16/17 08:10 98.1 80 18 128/71 (90) 99 11/16/17 07:40 Room Air 2.00 11/16/17 03:06 98.6 72 18 135/82 (99) 98 11/16/17 00:03 98.2 73 18 139/75 (96) 97 11/15/17 22:08 Room Air 11/15/17 21:00 99.2 91 18 143/98 (113) 98 11/15/17 17:53 Room Air 11/15/17 17:53 98.6 83 18 132/65 (87) 97 11/15/17 16:28 97.2 91 18 128/61 (83) 99 11/15/17 16:09 72 18 134/70 (91) 97 I/O 11/15/17 11/15/17 11/15/17 11/16/17 11/16/17 11/16/17 07:00 15:00 23:00 07:00 15:00 23:00 Intake Total 100 ml 480 ml Balance 100 ml 480 ml Intake Oral 480 ml IV Total 100 ml # Voids 2 Result Diagram: 11/16/17 0400 11/16/17 0400 Objective Remarks awake alert echymoses lef eye some aches and pains usual for his sz no asterixis vff face sym Assessment and Plan Assessment and Plan imp mri nl eeg nl labs ok x lft mild inc and his lft inc on vpa 500 hs and vimpat and briviat i think he could probably in future come off vimpat and push up vpa dose/level as o/p up Victor Manuel Mujica MD Nov 16, 2017 12:26
[2017-11-16] MEDS ORDERED: CALAMINE LOTION 180 APPLIC/180 ML BTL TOPICAL PRN (15:00)
[2017-11-16] MEDS ORDERED: DEPA500T3 PO (15:01)
--- NOTE | 2017-11-16 15:01 | HHI.DCPOC ---
Discharge Care Plan Diagnosis: (1) Rhabdomyolysis (2) Recurrent seizures Goals to Promote Your Health * To prevent worsening of your condition and complications * To maintain your health at the optimal level Directions to Meet Your Goals Take your medications as prescribed Follow your dietary instruction Follow activity as directed Keep your appointments as scheduled Take your immunizations and boosters as scheduled If your symptoms worsen call your PCP, if no PCP go to Urgent Care Center or Emergency Room Smoking is Dangerous to Your Health. Avoid second hand smoke Call the 24-hour hour crisis hotline for domestic abuse at Bryanna Dodson PA-C Nov 16, 2017 15:01
[2017-11-16] MEDS: DIVALPROEX SODIUM E.R. 500 MG TAB PO SCH (20:19)
[2017-11-17] VITALS (7 sets, daily range): BP systolic 125–134; BP diastolic 62–75; PULSE 54–78; RESP 16–18; TEMP 97.1–98.7; O2SAT 93–98
[2017-11-17] MEDS: SODIUM BICARBONATE 8.4% INJ 100 MEQ, POTASSIUM CHLORIDE INJ 20 MEQ in SODIUM CHLOR 0.45... IV SCH ×3 (00:33→17:36)
[2017-11-17] MEDS: ACETAMINOPHEN 325 MG TAB PO PRN ×2 (00:36→20:29)
--- NOTE | 2017-11-17 07:25 | HHI.PR ---
Subjective Remarks Follow-up rhabdomyolysis. Patient complaining of muscle aches. Voiding well. Discussed with nursing Objective Vitals Vital Signs Date Time Temp Pulse Resp B/P (MAP) Pulse Ox O2 Delivery O2 Flow Rate FiO2 11/17/17 04:29 97.1 65 16 132/64 (86) 97 11/17/17 04:09 54 11/17/17 00:30 98.7 66 18 125/62 (83) 97 11/16/17 20:20 Room Air 11/16/17 19:51 97.4 69 16 147/63 (91) 8 11/16/17 16:18 68 11/16/17 15:33 98.2 87 18 131/89 (103) 96 11/16/17 12:00 98.1 69 18 133/67 (89) 96 11/16/17 08:10 98.1 80 18 128/71 (90) 99 11/16/17 07:40 Room Air 2.00 I/O 11/16/17 11/16/17 11/16/17 11/17/17 11/17/17 11/17/17 07:00 15:00 23:00 07:00 15:00 23:00 Intake Total 480 ml 900 ml Output Total 1400 ml Balance 480 ml 900 ml -1400 ml Intake Oral 480 ml IV Total 900 ml Output Urine Total 1400 ml # Voids 2 Result Diagram: 11/16/17 0400 11/16/17 0400 Imaging Last Impressions Chest X-Ray 11/15/17 0000 Signed Impressions: Service Date/Time: Wednesday, November 15, 2017 14:57 - CONCLUSION: No acute disease. Galo Kearney MD FACR Brain MRI 11/15/17 0000 Signed Impressions: Service Date/Time: Wednesday, November 15, 2017 12:09 - CONCLUSION: 1. Normal examination. Juan David Kearney MD Orbit CT 11/14/17 0000 Signed Impressions: Service Date/Time: November 22:14 - CONCLUSION: 8mm area of soft tissue thickening adjacent to the lateral aspect of the preseptal left orbital globe. No fracture seen. Rodolfo Medley MD Head CT 11/14/17 0000 Signed Impressions: Service Date/Time: November 22:14 - CONCLUSION: 1. Negative noncontrast CT brain. Rodolfo Medley MD Cervical Spine CT 11/14/17 0000 Signed Impressions: Service Date/Time: November 22:14 - CONCLUSION: Straightening of the cervical lordosis. Otherwise negative trauma CT cervical spine. Rodolfo Medley MD Objective Remarks GENERAL: Well-nourished, well-developed young male patient in [facility]. SKIN: Warm and dry. Skin desquamation/peeling on the back. Sunburnt skin throughout. CARDIOVASCULAR: Regular rate and rhythm. S1, S2 noted. No murmur appreciated. RESPIRATORY: No accessory muscle use. Clear to auscultation. Breath sounds equal bilaterally. GASTROINTESTINAL: Abdomen soft, non-tender, nondistended. Normoactive bowel sounds x4. MUSCULOSKELETAL: No obvious deformities. Extremities without clubbing, cyanosis , or edema. NEUROLOGICAL: Awake and alert. No obvious cranial nerve deficits. Motor grossly within normal limits. 5/5 muscle strength in bilateral upper and lower extremities. Normal speech. PSYCHIATRIC: Appropriate mood and affect; insight and judgment normal. Procedures none A/P Problem List: (1) Recurrent seizures ICD Code: G40.909 - Epilepsy, unspecified, not intractable, without status epilepticus (2) Rhabdomyolysis ICD Code: M62.82 - Rhabdomyolysis (3) SIRS (systemic inflammatory response syndrome) ICD Code: R65.10 - Systemic inflammatory response syndrome (SIRS) of non- infectious origin without acute organ dysfunction Assessment and Plan 22-year-old male with history of seizures presents with seizure activity x2. The patient is visiting from [place] for spring. Recurrent Seizures with hx of Seizure Disorder: suspect exacerbated by recent alcohol binge. Patient reports compliance with medications. -Head CT and Brain MRI images reviewed, no acute findings -C-spine CT with no acute findings -Left Orbit CT with 8mm area of soft tissue thickening adjacent to lateral aspect of preseptal left orbital globe; no fracture -EEG negative -Neurology consulted -Continue patient's Briviact and Vimpat -Depakote 500mg hs added then discontinued by neurology secondary to abnormal liver function tests -Neuro checks, seizure precautions -Patient counseled on seizure precautions; patient does not drive Rhabdomyolysis: suspect secondary to seizures. This is worse. Increase sodium bicarb infusion to 170 cc an hour. Repeat BMP and CK in the morning -Check UA SIRS: patient meets SIRS criteria with WBC 21.6, temp 101.2, tachycardia HR 108. Need to rule out infectious source however no symptoms to suggest. SIRS may be secondary to seizure activity. Resolved -Check UA. Negative CXR -Monitor CBC and vitals Alcohol Use: chronic -counseled on cessation, especially with seizures as above Transaminitis: no previous labs to compare. Suspect secondary to recent alcohol use and rhabdomyolysis -continue IVF -avoid alcohol -LFTs worse. Depakote discontinued. Check hepatitis profile DVT Prophylaxis: teds/SCDs Discharge Planning Not ready for discharge with worsening rhabdomyolysis Ritchie Villarreal MD Nov 17, 2017 07:25
[2017-11-17 07:26] LABS: ALBUMIN 3.2 GM/DL (3.4-5.0); ALT (GPT) 91 U/L (12-78); AST (GOT) 220 U/L (15-37); BICARBONATE 29.2 MEQ/L (21.0-32.0); BLOOD UREA NITROGEN 7 MG/DL (7-18); CALCIUM 8.8 MG/DL (8.5-10.1); CHLORIDE 105 MEQ/L (98-107); CREATININE 0.81 MG/DL (0.60-1.30); GLOMERULAR FILTRATION RATE 119 ML/MIN (>89); GLUCOSE,RANDOM 84 MG/DL (74-106); SODIUM (NA) 141 MEQ/L (136-145)
[2017-11-17 07:56] LABS: ALKALINE PHOSPHATASE 66 U/L (45-117); TOTAL BILIRUBIN ADULT 0.6 MG/DL (0.2-1.0); TOTAL PROTEIN 6.3 GM/DL (6.4-8.2)
--- NOTE | 2017-11-17 08:31 | HHI.PR ---
Subjective Remarks no more sz Objective Vital Signs Date Time Temp Pulse Resp B/P (MAP) Pulse Ox O2 Delivery O2 Flow Rate FiO2 11/17/17 04:29 97.1 65 16 132/64 (86) 97 11/17/17 04:09 54 11/17/17 00:30 98.7 66 18 125/62 (83) 97 11/16/17 20:20 Room Air 11/16/17 19:51 97.4 69 16 147/63 (91) 8 11/16/17 16:18 68 11/16/17 15:33 98.2 87 18 131/89 (103) 96 11/16/17 12:00 98.1 69 18 133/67 (89) 96 I/O 11/16/17 11/16/17 11/16/17 11/17/17 11/17/17 11/17/17 07:00 15:00 23:00 07:00 15:00 23:00 Intake Total 480 ml 900 ml Output Total 1400 ml Balance 480 ml 900 ml -1400 ml Intake Oral 480 ml IV Total 900 ml Output Urine Total 1400 ml # Voids 2 Result Diagram: 11/16/17 0400 11/17/17 0635 Objective Remarks awake alert echymoses lef eye some aches and pains usual for his sz no asterixis vff face sym no change Assessment and Plan Assessment and Plan imp mri nl eeg nl labs ok x lft mild inc and his lft inc on vpa 500 hs and vimpat and briviat i think he could probably in future come off vimpat and push up vpa dose/level as o/p [place] 11/17/17 doing well neurowise his lft are increasing and i wonder if not from the vpa so i dced it and tomorrow would like to start on low dose lamictal 25 bid but with inc lft better that they start [place] he is supposed to see the neuro people [place] next week they can adjust his meds i think best thing is for him to stay and have lft rechecked in am so we are sure not something more serious going on and then will need them rechecked saturday also up [place] and fu by up there Victor Manuel Patel MD Nov 17, 2017 08:31
[2017-11-17] MEDS: SODIUM CHLORIDE 0.9% FLUSH 10 ML FLUSH IV FLUSH SCH ×2 (09:00→20:29)
[2017-11-17] MEDS: LACOSAMIDE 100 MG TAB PO SCH ×2 (09:27→20:28)
[2017-11-17] MEDS: BRIVARACETAM 100 MG PO SCH (09:27)
[2017-11-17] MEDS: [UNRECOGNIZED DRUG - OTHER] PO SCH (09:27)
[2017-11-17] MEDS: NYSTAT/DIPHENHY/LIDO MOUTHWASH (Adult) 120ML SWISH-SWAL SCH ×4 (09:28→20:29)
[2017-11-17] MEDS ORDERED: POTASSIUM CHLORIDE 20 MEQ CONTROLLED RELEASE TAB PO ONE (14:15)
[2017-11-18] VITALS (10 sets, daily range): BP systolic 119–135; BP diastolic 64–81; PULSE 56–92; RESP 16–20; TEMP 97.6–98.5; O2SAT 96–99
[2017-11-18] MEDS: SODIUM BICARBONATE 8.4% INJ 100 MEQ, POTASSIUM CHLORIDE INJ 20 MEQ in SODIUM CHLOR 0.45... IV SCH ×4 (01:11→22:55)
--- NOTE | 2017-11-18 06:50 | HHI.PR ---
Subjective Remarks no more sz Objective Vital Signs Date Time Temp Pulse Resp B/P (MAP) Pulse Ox O2 Delivery O2 Flow Rate FiO2 11/18/17 04:37 98.1 61 18 119/66 (83) 97 11/18/17 04:00 56 11/18/17 01:45 97.6 66 16 135/81 (99) 97 11/17/17 20:30 Room Air 11/17/17 20:11 98.1 78 16 133/70 (91) 93 11/17/17 16:00 98.0 61 18 134/69 (90) 98 11/17/17 11:15 98.7 65 18 129/63 (85) 97 11/17/17 08:30 97.5 70 18 134/75 (94) 97 I/O 11/17/17 11/17/17 11/17/17 11/18/17 11/18/17 11/18/17 07:00 15:00 23:00 07:00 15:00 23:00 Intake Total 1800 ml 2000 ml Output Total 1400 ml 1400 ml 1500 ml Balance -1400 ml 400 ml 500 ml Intake Oral 2000 ml IV Total 1800 ml Output Urine Total 1400 ml 1400 ml 1500 ml Result Diagram: 11/16/17 0400 11/17/17 0635 Objective Remarks awake alert echymoses lef eye some aches and pains usual for his sz no asterixis vff face sym no change Assessment and Plan Assessment and Plan imp mri nl eeg nl labs ok x lft mild inc and his lft inc on vpa 500 hs and vimpat and briviat i think he could probably in future come off vimpat and push up vpa dose/level as o/p [place] 11/17/17 doing well neurowise his lft are increasing and i wonder if not from the vpa so i dced it and tomorrow would like to start on low dose lamictal 25 bid but with inc lft better that they start [place] he is supposed to see the neuro people [place] next week they can adjust his meds i think best thing is for him to stay and have lft rechecked in am so we are sure not something more serious going on and then will need them rechecked saturday also up [place] and fu by up there 11/18/17 lft pend this am yest cpk up even more unclear why vpa off see what numbers look like today keep ivf on Victor Manuel Patel MD Nov 18, 2017 06:50
[2017-11-18] MEDS: SODIUM CHLORIDE 0.9% FLUSH 10 ML FLUSH IV FLUSH SCH ×2 (08:06→21:00)
[2017-11-18] MEDS: [UNRECOGNIZED DRUG - OTHER] PO SCH (08:07)
[2017-11-18] MEDS: BRIVARACETAM 100 MG PO SCH (08:07)
[2017-11-18] MEDS: LACOSAMIDE 100 MG TAB PO SCH ×2 (08:07→22:56)
[2017-11-18] MEDS: NYSTAT/DIPHENHY/LIDO MOUTHWASH (Adult) 120ML SWISH-SWAL SCH ×4 (08:08→22:57)
[2017-11-18 09:26] LABS: AST (GOT) 320 U/L (15-37); GAMMA GT 37 U/L (15-85)
[2017-11-18 09:28] LABS: ALT (GPT) 144 U/L (12-78); TOTAL BILIRUBIN ADULT 0.7 MG/DL (0.2-1.0)
[2017-11-18 10:17] LABS: CHLORIDE 100 MEQ/L (98-107); SODIUM (NA) 138 MEQ/L (136-145)
[2017-11-18 10:18] LABS: ALBUMIN 3.8 GM/DL (3.4-5.0); BICARBONATE 27.4 MEQ/L (21.0-32.0); BLOOD UREA NITROGEN 7 MG/DL (7-18); CALCIUM 9.3 MG/DL (8.5-10.1); CREATININE 0.75 MG/DL (0.60-1.30); GLOMERULAR FILTRATION RATE 130 ML/MIN (>89); GLUCOSE,RANDOM 83 MG/DL (74-106)
[2017-11-18 10:21] LABS: ALKALINE PHOSPHATASE 68 U/L (45-117); TOTAL PROTEIN 7.2 GM/DL (6.4-8.2)
--- NOTE | 2017-11-18 10:27 | HHI.PR ---
Subjective Remarks 22-year-old male with history of seizures presents with seizure activity x2. The patient is visiting from [place] for spring. He has been drinking alcohol most of the week. Yesterday his friends reported he was sleeping in the room most of the day. They found him with a black eye. His friends were able to wake him to go out to dinner, then later had a witnessed tonic clonic seizure. His friends report patient was confused after the seizure. He was reportedly postictal upon arrival to the ED and noted to have tongue ecchymosis. He is now AAOx4. He reports compliance with his seizure medications. Last seizure 1 month ago while he was in the gym, no medication adjustments at that time. He reports nausea and vomiting x3 last night. He reports recently he has been feeling well, and denies any recent headache, neck pain, cough, congestion, fever/chills, chest pain, abdominal pain, nausea/vomiting, or urinary complaints. He follows with a neurologist in [place]. 3-10 Follow-up seizure and rhabdomyolysis. Patient has no complaints he wants to go home. Seen with family. Discussed with nursing 3-11 Follow-up rhabdomyolysis. Patient complaining of muscle aches. Voiding well. Discussed with nursing 3-12 FOLLOW UP RHABDOMYOLYSIS AWAIT LABS TODAY [place] [address] DW RN AND PT US OF LIVER CONSULT NEPHROLOGY REGARDING CKS CANNOT DC TO HOME Objective Vitals Vital Signs Date Time Temp Pulse Resp B/P (MAP) Pulse Ox O2 Delivery O2 Flow Rate FiO2 11/18/17 08:53 98.1 71 20 132/69 (90) 99 11/18/17 04:37 98.1 61 18 119/66 (83) 97 11/18/17 04:00 56 11/18/17 01:45 97.6 66 16 135/81 (99) 97 11/17/17 20:30 Room Air 11/17/17 20:11 98.1 78 16 133/70 (91) 93 11/17/17 16:00 98.0 61 18 134/69 (90) 98 11/17/17 11:15 98.7 65 18 129/63 (85) 97 I/O 11/17/17 11/17/17 11/17/17 11/18/17 11/18/17 11/18/17 06:59 14:59 22:59 06:59 14:59 22:59 Intake Total 1800 ml 2000 ml Output Total 1400 ml 1400 ml 1500 ml Balance -1400 ml 400 ml 500 ml Intake Oral 2000 ml IV Total 1800 ml Output Urine Total 1400 ml 1400 ml 1500 ml Result Diagram: 11/16/17 0400 11/18/17 0825 Other Results Laboratory Tests Test 11/15/17 12:30 11/16/17 04:00 11/17/17 06:35 11/17/17 15:01 White Blood Count 18.1 TH/MM3 10.1 TH/MM3 Red Blood Count 4.86 MIL/MM3 4.68 MIL/MM3 Hemoglobin 14.5 GM/DL 14.0 GM/DL Hematocrit 42.0 % 40.2 % Mean Corpuscular Volume 86.3 FL 85.9 FL Mean Corpuscular Hemoglobin 29.8 PG 29.9 PG Mean Corpuscular Hemoglobin Concent 34.5 % 34.9 % Red Cell Distribution Width 13.2 % 13.1 % Platelet Count 305 TH/MM3 240 TH/MM3 Mean Platelet Volume 8.3 FL 8.2 FL Neutrophils (%) (Auto) 80.8 % 65.6 % Lymphocytes (%) (Auto) 8.0 % 23.2 % Monocytes (%) (Auto) 11.1 % 10.5 % Eosinophils (%) (Auto) 0.0 % 0.4 % Basophils (%) (Auto) 0.1 % 0.3 % Neutrophils # (Auto) 14.6 TH/MM3 6.6 TH/MM3 Lymphocytes # (Auto) 1.4 TH/MM3 2.3 TH/MM3 Monocytes # (Auto) 2.0 TH/MM3 1.1 TH/MM3 Eosinophils # (Auto) 0.0 TH/MM3 0.0 TH/MM3 Basophils # (Auto) 0.0 TH/MM3 0.0 TH/MM3 CBC Comment DIFF FINAL DIFF FINAL Differential Comment Blood Urea Nitrogen 13 MG/DL 8 MG/DL 7 MG/DL Creatinine 1.29 MG/DL 0.83 MG/DL 0.81 MG/DL Random Glucose 79 MG/DL 81 MG/DL 84 MG/DL Total Protein 7.3 GM/DL 6.3 GM/DL 6.3 GM/DL Albumin 4.1 GM/DL 3.4 GM/DL 3.2 GM/DL Calcium Level 7.5 MG/DL 8.1 MG/DL 8.8 MG/DL Magnesium Level 2.6 MG/DL 2.2 MG/DL 2.0 MG/DL Alkaline Phosphatase 83 U/L 70 U/L 66 U/L Aspartate Amino Transf (AST/SGOT) 72 U/L 128 U/L 220 U/L Alanine Aminotransferase (ALT/SGPT) 64 U/L 65 U/L 91 U/L Total Bilirubin 0.8 MG/DL 0.8 MG/DL 0.6 MG/DL Sodium Level 137 MEQ/L 142 MEQ/L 141 MEQ/L Potassium Level 4.1 MEQ/L 3.6 MEQ/L 3.8 MEQ/L Chloride Level 105 MEQ/L 110 MEQ/L 105 MEQ/L Carbon Dioxide Level 21.3 MEQ/L 24.6 MEQ/L 29.2 MEQ/L Anion Gap 11 MEQ/L 7 MEQ/L 7 MEQ/L Estimat Glomerular Filtration Rate 70 ML/MIN 116 ML/MIN 119 ML/MIN Total Creatine Kinase 4458 U/L 02795 U/L 28220 U/L Creatine Kinase MB 3.3 NG/ML 2.2 NG/ML 1.2 NG/ML Creatine Kinase MB % 0.1 % 0.0 % 0.0 % Valproic Acid (Depakene) Level 27 MCG/ML 37 MCG/ML Test 11/18/17 08:25 Blood Urea Nitrogen 7 MG/DL Creatinine 0.75 MG/DL Random Glucose 83 MG/DL Total Protein 7.2 GM/DL Albumin 3.8 GM/DL Calcium Level 9.3 MG/DL Magnesium Level 2.0 MG/DL Alkaline Phosphatase 68 U/L Aspartate Amino Transf (AST/SGOT) 320 U/L Alanine Aminotransferase (ALT/SGPT) 144 U/L Gamma Glutamyl Transpeptidase 37 U/L Total Bilirubin 0.7 MG/DL Sodium Level 138 MEQ/L Potassium Level 3.9 MEQ/L Chloride Level 100 MEQ/L Carbon Dioxide Level 27.4 MEQ/L Anion Gap 11 MEQ/L Estimat Glomerular Filtration Rate 130 ML/MIN Imaging Last Impressions Chest X-Ray 11/15/17 0000 Signed Impressions: Service Date/Time: Wednesday, November 15, 2017 14:57 - CONCLUSION: No acute disease. Galo Kearney MD FACR Brain MRI 11/15/17 0000 Signed Impressions: Service Date/Time: Wednesday, November 15, 2017 12:09 - CONCLUSION: 1. Normal examination. Juan David Kearney MD Orbit CT 11/14/17 0000 Signed Impressions: Service Date/Time: November 22:14 - CONCLUSION: 8mm area of soft tissue thickening adjacent to the lateral aspect of the preseptal left orbital globe. No fracture seen. Rodolfo Medley MD Head CT 11/14/17 0000 Signed Impressions: Service Date/Time: November 22:14 - CONCLUSION: 1. Negative noncontrast CT brain. Rodolfo Medley MD Cervical Spine CT 11/14/17 0000 Signed Impressions: Service Date/Time: November 22:14 - CONCLUSION: Straightening of the cervical lordosis. Otherwise negative trauma CT cervical spine. Rodolfo Medley MD Objective Remarks GENERAL: Awake alert oriented 3 talkative and cooperative appears stated age SKIN: Warm and dry. Multiple tattoos Has had a new one placed on his right arm a few days ago HEAD: Atraumatic. Normocephalic. EYES: Pupils equal and round. No scleral icterus. No injection or drainage. Extraocular muscles intact ENT: No nasal bleeding or discharge. Mucous membranes pink and moist. Tongue is midline NECK: Trachea midline. No JVD. Supple CARDIOVASCULAR: Regular rate and rhythm. S1-S2 no S3 or S4 no heave or thrill or rub or gallop RESPIRATORY: No accessory muscle use. Clear to auscultation. Breath sounds equal bilaterally. GASTROINTESTINAL: Abdomen soft, non-tender, nondistended. Hepatic and splenic margins not palpable. MUSCULOSKELETAL: Extremities without clubbing, cyanosis, or edema. No obvious deformities. NEUROLOGICAL: Awake and alert. No obvious cranial nerve deficits. Motor grossly within normal limits. Five out of 5 muscle strength in the arms and legs. Normal speech. PSYCHIATRIC: Appropriate mood and affect; insight and judgment normal. Procedures none Medications and IVs Current Medications Lorazepam (Ativan Inj) 2 mg STK-MED ONCE .ROUTE Last administered on 11/14/17at 23:27; Start 11/14/17 at 23:20; Stop 11/14/17 at 23:21; Status DC Ondansetron HCl (Zofran Inj) 4 mg STK-MED ONCE .ROUTE Last administered on at 05:39; Start 11/15/17 at 05:31; Stop 11/15/17 at 05:32; Status DC Levetriacetam 500 mg/Sodium Chloride 105 ml @ 420 mls/hr BOLUS ONCE IV Last administered on 11/15/17at 06:28; Start 11/15/17 at 06:00; Stop 11/15/17 at 06:14; Status DC Sodium Chloride (NS Flush) 2 ml UNSCH PRN IV FLUSH FLUSH AFTER USING IV ACCESS ; Start 11/15/17 at 06:00 Sodium Chloride (NS Flush) 2 ml BID IV FLUSH Last administered on 11/18/17at 08: 06; Start 11/15/17 at 09:00 Lorazepam (Ativan Inj) 2 mg Q10M PRN IV PUSH SEE LABEL COMMENTS Last administered on 11/15/17at 06:17; Start 11/15/17 at 06:00 Acetaminophen (Tylenol) 650 mg Q4H PRN PO PAIN SCALE 1 TO 10 Last administered on 11/17/17at 20:29; Start 11/15/17 at 06:00 Levetriacetam (Keppra) 500 mg Q12HR PO ; Start 11/15/17 at 21:00; Stop 11/15/17 at 21:00; Status DC Lacosamide (Vimpat) 200 mg BID PO Last administered on 11/18/17at 08:07; Start 11/15/17 at 09:00 Non-Formulary Medication 200 mg BID PO ; Start 11/15/17 at 09:00; Stop 11/15/17 at 09:00; Status DC Non-Formulary Medication PTOWN-BRIVARACETAM 200MG PO DAILY DAILY PO ; Start 11/15 at 09:00; Stop 11/16/17 at 19:43; Status DC Divalproex Sodium (Depakote Er) 500 mg ONCE STAT PO Last administered on at 08:57; Start 11/15/17 at 08:17; Stop 11/15/17 at 08:21; Status DC Divalproex Sodium (Depakote Er) 500 mg HS PO Last administered on 11/16/17at 20: 19; Start 11/15/17 at 21:00; Stop 11/17/17 at 08:25; Status DC Sodium Chloride 1,000 ml @ 125 mls/hr Q8H IV Last administered on 11/16/17at 01 :48; Start 11/15/17 at 09:00; Stop 11/16/17 at 07:30; Status DC Gadodiamide (Omniscan Pf Inj) 14 ml STK-MED ONCE IV PUSH Last administered on at 12:00; Start 11/15/17 at 12:00; Stop 11/15/17 at 12:54; Status DC Influenza Virus Vaccine (Flu (Quadrivalent) Vaccine Inj) 0.5 ml ONCE ONCE IM Last administered on 11/16/17at 09:25; Start 11/16/17 at 10:00; Stop 11/16/17 at 10:01; Status DC Multi-Ingredient Mouthwash/Gargle (Magic Mouthwash Adult Liq) 10 ml QID SWISH- SWAL Last administered on 11/18/17at 08:08; Start 11/15/17 at 21:00 Sodium Bicarbonate 100 meq/Potassium Chloride 20 meq/ Sodium Chloride 1,110 ml @ 175 mls/hr Q6H21M IV Last administered on 11/18/17at 08:06; Start 11/16/17 at 08:00 Calamine (Calamine Lotion) 1 applic Q1H PRN TOPICAL ITCHING AND/OR SUNBURN DISCOMF; Start 11/16/17 at 15:00 Non-Formulary Medication PTOWN-BRIVARACETAM 100 MG TABS-DOSE IS 200MG PO DAILY DAILY PO Last administered on 11/18/17at 08:07; Start 11/17/17 at 09:00 Potassium Chloride (KCl) 20 meq ONCE ONCE PO Last administered on 11/17/17at 15 :30; Start 11/17/17 at 14:15; Stop 11/17/17 at 14:16; Status DC A/P Problem List: (1) Recurrent seizures ICD Code: G40.909 - Epilepsy, unspecified, not intractable, without status epilepticus (2) Rhabdomyolysis ICD Code: M62.82 - Rhabdomyolysis (3) SIRS (systemic inflammatory response syndrome) ICD Code: R65.10 - Systemic inflammatory response syndrome (SIRS) of non- infectious origin without acute organ dysfunction Assessment and Plan 22-year-old male with history of seizures presents with seizure activity x2. The patient is visiting from [place] for spring. Recurrent Seizures with hx of Seizure Disorder: suspect exacerbated by recent alcohol binge. Patient reports compliance with medications. -Head CT and Brain MRI images reviewed, no acute findings -C-spine CT with no acute findings -Left Orbit CT with 8mm area of soft tissue thickening adjacent to lateral aspect of preseptal left orbital globe; no fracture -EEG negative -Neurology consulted -Continue patient's Briviact and Vimpat -Depakote 500mg hs added then discontinued by neurology secondary to abnormal liver function tests -Neuro checks, seizure precautions -Patient counseled on seizure precautions; patient does not drive Rhabdomyolysis: suspect secondary to seizures. This is worse. Increase sodium bicarb infusion to 170 cc an hour. Repeat BMP and CK in the morning -Check UA -Was worse yesterday await today's labs SIRS: patient meets SIRS criteria with WBC 21.6, temp 101.2, tachycardia HR 108. Need to rule out infectious source however no symptoms to suggest. SIRS may be secondary to seizure activity. Resolved -Check UA. Negative CXR -Monitor CBC and vitals Alcohol Use: chronic -counseled on cessation, especially with seizures as above Transaminitis: no previous labs to compare. Suspect secondary to recent alcohol use and rhabdomyolysis -continue IVF -avoid alcohol -LFTs worse. Depakote discontinued. Check hepatitis profile DVT Prophylaxis: teds/SCDs Discharge Planning Pending improvement on his rhabdomyolysis Galo Miller DO Nov 18, 2017 10:27
[2017-11-18 12:36] LABS: HEPATITIS A AB IGM NEGATIVE (NEGATIVE); HEPATITIS B CORE AB IGM NEGATIVE (NEGATIVE)
--- NOTE | 2017-11-18 17:26 | RADRPT ---
EXAM DATE/TIME: 11/18/2017 16:45 [facility] COMPARISON: No previous studies available for comparison. INDICATIONS : Increased lab values. MEDICAL HISTORY : Seizures. Alcohol use. SURGICAL HISTORY : ACL repair. ENCOUNTER: Initial ACUITY: 1 week PAIN SCORE: 0/10 LOCATION: Bilateral upper quadrant MEASUREMENTS: LIVER: 17.1 cm length COMMON DUCT: 5 mm RIGHT KIDNEY: 11.5 x 4.6 x 4.8 cm SPLEEN: 11.2 cm length FINDINGS: LIVER: Normal echotexture without focal lesion or ductal dilatation. COMMON DUCT: No intraluminal mass or stone visualized. GALLBLADDER: Contains no stones, demonstrates no wall thickening or pericholecystic fluid. PANCREAS: The visualized portions are within normal limits. RIGHT KIDNEY: No hydronephrosis, stone or mass. SPLEEN: No focal lesion. CONCLUSION: Normal examination. Vasquez Gill MD on November 18, 2017 at 17:23 Board Certified Radiologist. This report was verified electronically.
--- NOTE | 2017-11-18 19:08 | PD.CONS ---
HPI Service Nephrology Consult Requested By Reason for Consult Rhabdomyolysis Primary Care Physician Unknown History of Present Illness Patient is going to-year-old male with history of seizures who was here on spring, he was drinking excessively and found passed out in the hotel room and friends notice bruise over his left, patient again woke up and went to have the cyst and then again had witnessed seizures presumably after drinking alcohol, he was brought in this state, he has been getting IV fluid with sodium bicarbonate his creatinine is stable CPK is greater than 29,000 Review of Systems ROS Limitations: Clinical Condition Past Family Social History Allergies: Coded Allergies: No Known Allergies (Verified Allergy, Unknown, 11/15/17) Past Medical History Seizure Reported Medications Reported Meds & Active Scripts Active Depakote ER (Divalproex Sodium) 500 Mg Dung 500 Mg PO HS Reported Vimpat (Lacosamide) 200 Mg Tab 200 Mg PO BID Briviact (Brivaracetam) 100 Mg Tab 200 Mg PO BID Active Ordered Medications Current Medications Medications (Trade) Dose Ordered Sig/Yanira Route Start Time Stop Time Status Last Admin (NS Flush) 2 ml UNSCH PRN IV FLUSH 11/15/17 06:00 (NS Flush) 2 ml BID IV FLUSH 11/15/17 09:00 11/18/17 08:06 (Ativan Inj) 2 mg Q10M PRN IV PUSH 11/15/17 06:00 11/15/17 06:17 (Tylenol) 650 mg Q4H PRN PO 11/15/17 06:00 11/17/17 20:29 (Vimpat) 200 mg BID PO 11/15/17 09:00 11/18/17 08:07 (Magic Mouthwash Adult Liq) 10 ml QID SWISH-SWAL 11/15/17 21:00 11/18/17 13:52 Sodium Bicarbonate 100 meq/Potassium Chloride 20 meq/ Sodium Chloride 1,110 ml @ 175 mls/hr Q6H21M IV 11/16/17 08:00 11/18/17 15:33 (Calamine Lotion) 1 applic Q1H PRN TOPICAL 11/16/17 15:00 Non-Formulary Medication PTOWN-BRIVARACETAM 100 MG TABS-DOSE IS 200MG PO DAILY DAILY PO 11/17/17 09:00 11/18/17 08:07 Family History Noncontributory Social History Drinks alcohol, used marijuana Physical Exam Vital Signs Vital Signs Date Time Temp Pulse Resp B/P (MAP) Pulse Ox O2 Delivery O2 Flow Rate FiO2 11/18/17 16:18 98.2 76 20 135/70 (91) 98 11/18/17 11:37 98.2 75 20 126/70 (88) 98 11/18/17 11:36 99 Room Air 11/18/17 08:53 98.1 71 20 132/69 (90) 99 11/18/17 04:37 98.1 61 18 119/66 (83) 97 11/18/17 04:00 56 11/18/17 01:45 97.6 66 16 135/81 (99) 97 11/17/17 20:30 Room Air 11/17/17 20:11 98.1 78 16 133/70 (91) 93 Physical Exam GENERAL: Well-nourished, well-developed patient. SKIN: Warm and dry. HEAD: Normocephalic. EYES: No scleral icterus. No injection or drainage. NECK: Supple, trachea midline. No JVD or lymphadenopathy. CARDIOVASCULAR: Regular rate and rhythm without murmurs, gallops, or rubs. RESPIRATORY: Breath sounds equal bilaterally. No accessory muscle use. GASTROINTESTINAL: Abdomen soft, non-tender, nondistended. EXTREMITIES: No cyanosis, or edema. NEUROLOGICAL: Awake, alert, and oriented x 3. Non-focal. Laboratory Laboratory Tests Test 11/18/17 08:25 Blood Urea Nitrogen 7 Creatinine 0.75 Random Glucose 83 Total Protein 7.2 Albumin 3.8 Calcium Level 9.3 Magnesium Level 2.0 Alkaline Phosphatase 68 Aspartate Amino Transf (AST/SGOT) 320 Alanine Aminotransferase (ALT/SGPT) 144 Gamma Glutamyl Transpeptidase 37 Total Bilirubin 0.7 Sodium Level 138 Potassium Level 3.9 Chloride Level 100 Carbon Dioxide Level 27.4 Anion Gap 11 Estimat Glomerular Filtration Rate 130 Total Creatine Kinase 40386 Creatine Kinase MB 0.6 Creatine Kinase MB % 0.0 Result Diagram: 11/16/17 0400 11/18/17 0825 Imaging Last Impressions Liver Ultrasound 11/18/17 0000 Signed Impressions: Service Date/Time: Saturday, November 18, 2017 16:45 - CONCLUSION: Normal examination. Vasquez Gill MD Chest X-Ray 11/15/17 0000 Signed Impressions: Service Date/Time: Wednesday, November 15, 2017 14:57 - CONCLUSION: No acute disease. Galo Kearney MD FACR Brain MRI 11/15/17 0000 Signed Impressions: Service Date/Time: Wednesday, November 15, 2017 12:09 - CONCLUSION: 1. Normal examination. Juan David Kearney MD Orbit CT 11/14/17 0000 Signed Impressions: Service Date/Time: November 22:14 - CONCLUSION: 8mm area of soft tissue thickening adjacent to the lateral aspect of the preseptal left orbital globe. No fracture seen. Rodolfo Medley MD Head CT 11/14/17 0000 Signed Impressions: Service Date/Time: November 22:14 - CONCLUSION: 1. Negative noncontrast CT brain. Rodolfo Medley MD Cervical Spine CT 11/14/17 Signed Impressions: Service Date/Time: November 22:14 - CONCLUSION: Straightening of the cervical lordosis. Otherwise negative trauma CT cervical spine. Rodolfo Medley MD Assessment and Plan Problem List: (1) Rhabdomyolysis ICD Codes: M62.82 - Rhabdomyolysis Plan: Patient has seizure and this may have led to rhabdomyolysis, I agree with sodium bicarbonate drip Renal function is stable Continue to keep him well-hydrated Nephrology to follow as needed (2) Recurrent seizures ICD Codes: G40.909 - Epilepsy, unspecified, not intractable, without status epilepticus Plan: Continue to monitor on antiseizure medication Ale Zacarias MD Nov 18, 2017 19:07
[2017-11-19] VITALS (11 sets, daily range): BP systolic 118–133; BP diastolic 57–81; PULSE 60–93; RESP 15–18; TEMP 97.4–98.2; O2SAT 97–99
[2017-11-19] MEDS: SODIUM BICARBONATE 8.4% INJ 100 MEQ, POTASSIUM CHLORIDE INJ 20 MEQ in SODIUM CHLOR 0.45... IV SCH ×4 (05:01→22:20)
--- NOTE | 2017-11-19 07:13 | HHI.PR ---
Subjective Remarks no more sz still Objective Vital Signs Date Time Temp Pulse Resp B/P (MAP) Pulse Ox O2 Delivery O2 Flow Rate FiO2 11/19/17 04:07 98.0 70 15 118/66 (83) 99 11/19/17 03:59 60 11/19/17 00:28 97.4 78 16 120/57 (78) 98 11/18/17 23:59 88 11/18/17 20:44 98.5 85 17 127/64 (85) 96 11/18/17 20:00 92 11/18/17 16:18 98.2 76 20 135/70 (91) 98 11/18/17 11:37 98.2 75 20 126/70 (88) 98 11/18/17 11:36 99 Room Air 11/18/17 08:53 98.1 71 20 132/69 (90) 99 11/18/17 07:30 81 I/O 11/18/17 11/18/17 11/18/17 11/19/17 11/19/17 11/19/17 07:00 15:00 23:00 07:00 15:00 23:00 Intake Total 2000 ml Output Total 1500 ml 1000 ml 800 ml Balance 500 ml -1000 ml -800 ml Intake Oral 2000 ml Output Urine Total 1500 ml 1000 ml 800 ml # Voids 3 Result Diagram: 11/16/17 0400 11/18/17 0825 Objective Remarks awake alert echymoses left eye vff face sym no change Assessment and Plan Assessment and Plan imp mri nl eeg nl labs ok x lft mild inc and his lft inc on vpa 500 hs and vimpat and briviat i think he could probably in future come off vimpat and push up vpa dose/level as o/p up se[place] 11/17/17 doing well neurowise his lft are increasing and i wonder if not from the vpa so i dced it and tomorrow would like to start on low dose lamictal 25 bid but with inc lft better that they start up se[place] he is supposed to see the neuro people [place] next week they can adjust his meds i think best thing is for him to stay and have lft rechecked in am so we are sure not something more serious going on and then will need them rechecked saturday also up se[place] and fu by up there 11/18/17 lft pend this am yest cpk up even more unclear why vpa off see what numbers look like today keep ivf on 11/19/17 yest numbers dontinue to climb unclear why neuro fabian stable other labs i ordered now Victor Manuel Patel MD Nov 19, 2017 07:13
[2017-11-19 08:18] LABS: ALBUMIN 4.1 GM/DL (3.4-5.0); AST (GOT) 317 U/L (15-37); BICARBONATE 32.7 MEQ/L (21.0-32.0); BLOOD UREA NITROGEN 10 MG/DL (7-18); CALCIUM 9.5 MG/DL (8.5-10.1); CHLORIDE 99 MEQ/L (98-107); CREATININE 0.93 MG/DL (0.60-1.30); GLOMERULAR FILTRATION RATE 102 ML/MIN (>89); GLUCOSE,RANDOM 85 MG/DL (74-106); SODIUM (NA) 138 MEQ/L (136-145)
[2017-11-19 08:19] LABS: ALT (GPT) 231 U/L (12-78); PHOSPHORUS 3.8 MG/DL (2.5-4.9)
[2017-11-19 08:20] LABS: C-REACTIVE PROTEIN 1.2 MG/DL (0.00-0.30)
[2017-11-19 08:44] LABS: ALKALINE PHOSPHATASE 76 U/L (45-117); TOTAL BILIRUBIN ADULT 0.7 MG/DL (0.2-1.0); TOTAL PROTEIN 7.5 GM/DL (6.4-8.2)
[2017-11-19 08:45] LABS: CHOLESTEROL/ HDL RATIO 2.65 RATIO
[2017-11-19] MEDS: SODIUM CHLORIDE 0.9% FLUSH 10 ML FLUSH IV FLUSH SCH ×2 (09:00→20:32)
[2017-11-19] MEDS: LACOSAMIDE 100 MG TAB PO SCH ×2 (09:07→20:30)
[2017-11-19] MEDS: NYSTAT/DIPHENHY/LIDO MOUTHWASH (Adult) 120ML SWISH-SWAL SCH ×4 (09:07→20:32)
[2017-11-19] MEDS: [UNRECOGNIZED DRUG - OTHER] PO SCH (09:10)
[2017-11-19] MEDS: BRIVARACETAM 100 MG PO SCH (09:10)
--- NOTE | 2017-11-19 11:16 | PD.CONS ---
HPI History of Present Illness This is a 22 year old with hx seizure disorder who presented to ER for seizures. he had a seizure 5 days ago with nausea and vomiting at a restaurant , unsure of sequence. Denies abd pain, reflux, dysphagia, constipation, diarrhea. Admits drinking heavily over weekend. No prior hx elevated LFTs or liver trouble, no family hx liver dz. Never had EGD or colonoscopy. (Tiana De Leon) PFSH Past Medical History Seizures pituitary mass Past Surgical History Knee surgery (Tiana De Leon) Coded Allergies: No Known Allergies (Verified Allergy, Unknown, 11/15/17) Family History Mother with epilepsy Social History Denies tobacco use Drinks alcohol, mostly social binge drinking, but not every day occasional marijuana (Tiana De Leon) Review of Systems Constitutional: DENIES: Fever Endocrine: DENIES: Polydipsia Eyes: DENIES: Blurred vision Ears, nose, mouth, throat: DENIES: Hearing loss Respiratory: DENIES: Cough Cardiovascular: DENIES: Chest pain Gastrointestinal: DENIES: Abdominal pain, Nausea, Vomiting, Difficulty Swallowing, Hematemesis Genitourinary: DENIES: Urinary frequency Musculoskeletal: DENIES: Joint pain Integumentary: DENIES: Abnormal pigmentation Hematologic/lymphatic: DENIES: Bruising Immunologic/allergic: DENIES: Eczema Neurologic: COMPLAINS OF: Headache Psychiatric: DENIES: Confusion (Tiana eD Leon) GI Exam Vitals I&O Vital Signs Date Time Temp Pulse Resp B/P (MAP) Pulse Ox O2 Delivery O2 Flow Rate FiO2 11/19/17 07:30 84 11/19/17 07:21 97.6 67 18 129/68 (88) 98 11/19/17 04:07 98.0 70 15 118/66 (83) 99 11/19/17 03:59 60 11/19/17 00:28 97.4 78 16 120/57 (78) 98 11/18/17 23:59 88 11/18/17 20:44 98.5 85 17 127/64 (85) 96 11/18/17 20:00 92 11/18/17 16:18 98.2 76 20 135/70 (91) 98 11/18/17 11:37 98.2 75 20 126/70 (88) 98 11/18/17 11:36 99 Room Air I/O 11/18/17 11/18/17 11/18/17 11/19/17 11/19/17 11/19/17 07:00 15:00 23:00 07:00 15:00 23:00 Intake Total 2000 ml Output Total 1500 ml 1000 ml 800 ml Balance 500 ml -1000 ml -800 ml Intake Oral 2000 ml Output Urine Total 1500 ml 1000 ml 800 ml # Voids 3 Laboratory Test 11/19/17 07:34 Blood Urea Nitrogen 10 MG/DL Creatinine 0.93 MG/DL Random Glucose 85 MG/DL Total Protein 7.5 GM/DL Albumin 4.1 GM/DL Calcium Level 9.5 MG/DL Phosphorus Level 3.8 MG/DL Magnesium Level 2.0 MG/DL Alkaline Phosphatase 76 U/L Aspartate Amino Transf (AST/SGOT) 317 U/L Alanine Aminotransferase (ALT/SGPT) 231 U/L Total Bilirubin 0.7 MG/DL Sodium Level 138 MEQ/L Potassium Level 4.5 MEQ/L Chloride Level 99 MEQ/L Carbon Dioxide Level 32.7 MEQ/L Anion Gap 6 MEQ/L Estimat Glomerular Filtration Rate 102 ML/MIN Ammonia 20 MCMOL/L Total Creatine Kinase 15459 U/L Creatine Kinase MB 0.9 NG/ML Creatine Kinase MB % 0.0 % C-Reactive Protein 1.20 MG/DL Triglycerides Level 83 MG/DL Cholesterol Level 194 MG/DL LDL Cholesterol 104 MG/DL HDL Cholesterol 73.0 MG/DL Cholesterol/HDL Ratio 2.65 RATIO Vitamin B12 Level 734 PG/ML Free Thyroxine 1.00 NG/DL Thyroid Stimulating Hormone 3rd Gen 2.420 uIU/ML Physical Examination HEENT: Pupils round and reactive to light; normocephalic; atraumatic; no jaundice. Throat is clear. NECK: Neck is supple, no JVD, no lymphadenopathy. CHEST: Chest is clear to auscultation and percussion. CARDIAC: Regular rate and rhythm with no murmur gallop or rubs. ABDOMEN: Soft, nondistended, nontender; no hepatosplenomegaly; bowel sounds are present in all four quadrants. EXTREMITIES: No clubbing, cyanosis, or edema. SKIN: Normal; no rash; no jaundice. PAD ASSEMBLER: No focal deficits; alert and oriented times three. (Tiana De Leon) Assessment and Plan Plan ASSESSMENT - elevated LFTs - unclear etiology ETOH vs seizure. hepatitis panel negative. US liver normal. AST> ALT likely 2/2 ETOH but will get liver w/u rule out other cause - rhabdomyolysis, seizures, SIRS per attending PLAN - liver w/u - f/u with GI in [place] - [facility] - supportive care pt seen by myself and Dr Webster and this note is on his behalf (Tiana De Leon) Physician Comments Agree with above assessment and plan, further recommendations to follow. Thank you for the consult. (Olivia Webster MD) Tiana De Leon Nov 19, 2017 11:16 Olivia Webster MD Nov 19, 2017 11:34
[2017-11-19 12:17] LABS: BASOPHIL % 0.5 % (0.0-2.0); EOSINOPHIL # 0.1 TH/MM3 (0-0.4); EOSINOPHIL % 1.2 % (0.0-4.0); HEMATOCRIT 46.5 % (39.0-51.0); HEMOGLOBIN 16.2 GM/DL (13.0-17.0); LYMPH % 14.8 % (9.0-44.0); MEAN CELL VOLUME 87.7 FL (80.0-100.0); MEAN CORPUSCULAR HEMOGLOBIN 30.5 PG (27.0-34.0); MEAN CORPUSCULAR HGB CONC 34.7 % (32.0-36.0); MEAN PLATELET VOLUME 7.8 FL (7.0-11.0); MONO % 10.1 % (0.0-8.0); MONOCYTE # 0.7 TH/MM3 (0-0.9); NEUT % 73.4 % (16.0-70.0); PLATELET COUNT 272 TH/MM3 (150-450); RED CELL DISTRIBUTION WIDTH 13.1 % (11.6-17.2); WHITE BLOOD COUNT 6.9 TH/MM3 (4.0-11.0)
--- NOTE | 2017-11-19 14:50 | HHI.PR ---
Subjective Remarks 22-year-old male with history of seizures presents with seizure activity x2. The patient is visiting from [place] for spring. He has been drinking alcohol most of the week. Yesterday his friends reported he was sleeping in the room most of the day. They found him with a black eye. His friends were able to wake him to go out to dinner, then later had a witnessed tonic clonic seizure. His friends report patient was confused after the seizure. He was reportedly postictal upon arrival to the ED and noted to have tongue ecchymosis. He is now AAOx4. He reports compliance with his seizure medications. Last seizure 1 month ago while he was in the gym, no medication adjustments at that time. He reports nausea and vomiting x3 last night. He reports recently he has been feeling well, and denies any recent headache, neck pain, cough, congestion, fever/chills, chest pain, abdominal pain, nausea/vomiting, or urinary complaints. He follows with a neurologist in [place]. 3-10 Follow-up seizure and rhabdomyolysis. Patient has no complaints he wants to go home. Seen with family. Discussed with nursing 3-11 Follow-up rhabdomyolysis. Patient complaining of muscle aches. Voiding well. Discussed with nursing 3-12 FOLLOW UP RHABDOMYOLYSIS AWAIT LABS TODAY [place] [id number] DW RN AND PT US OF LIVER CONSULT NEPHROLOGY REGARDING CKS CANNOT DC TO HOME 313 CK is down to 15,000 Discussed with patient and RN and his father I discussed with his grandmother yesterday who lives in [place] GRANDMOTHER ANDREY LITTLE [phone] PT LIVES WITH HER IN [place], [place] Discussed with father. Has been seen by gastroenterology and neurology. Workup has continued. We will get a.m. labs if numbers appear much better hopefully can be discharged tomorrow Suspect the CKs are due to multiple seizures Objective Vitals Vital Signs Date Time Temp Pulse Resp B/P (MAP) Pulse Ox O2 Delivery O2 Flow Rate FiO2 11/19/17 12:00 69 11/19/17 11:18 97.9 77 18 133/74 (93) 98 11/19/17 07:30 84 11/19/17 07:21 97.6 67 18 129/68 (88) 98 11/19/17 04:07 98.0 70 15 118/66 (83) 99 11/19/17 03:59 60 11/19/17 00:28 97.4 78 16 120/57 (78) 98 11/18/17 23:59 88 11/18/17 20:44 98.5 85 17 127/64 (85) 96 11/18/17 20:00 92 11/18/17 16:18 98.2 76 20 135/70 (91) 98 I/O 11/18/17 11/18/17 11/18/17 11/19/17 11/19/17 11/19/17 07:00 15:00 23:00 07:00 15:00 23:00 Intake Total 2000 ml Output Total 1500 ml 1000 ml 800 ml Balance 500 ml -1000 ml -800 ml Intake Oral 2000 ml Output Urine Total 1500 ml 1000 ml 800 ml # Voids 3 Result Diagram: 11/19/17 1129 11/19/17 0734 Other Results Laboratory Tests Test 11/17/17 06:35 11/17/17 15:01 11/18/17 08:25 11/19/17 07:34 Blood Urea Nitrogen 7 MG/DL 7 MG/DL 10 MG/DL Creatinine 0.81 MG/DL 0.75 MG/DL 0.93 MG/DL Random Glucose 84 MG/DL 83 MG/DL 85 MG/DL Total Protein 6.3 GM/DL 7.2 GM/DL 7.5 GM/DL Albumin 3.2 GM/DL 3.8 GM/DL 4.1 GM/DL Calcium Level 8.8 MG/DL 9.3 MG/DL 9.5 MG/DL Magnesium Level 2.0 MG/DL 2.0 MG/DL 2.0 MG/DL Alkaline Phosphatase 66 U/L 68 U/L 76 U/L Aspartate Amino Transf (AST/SGOT) 220 U/L 320 U/L 317 U/L Alanine Aminotransferase (ALT/SGPT) 91 U/L 144 U/L 231 U/L Total Bilirubin 0.6 MG/DL 0.7 MG/DL 0.7 MG/DL Sodium Level 141 MEQ/L 138 MEQ/L 138 MEQ/L Potassium Level 3.8 MEQ/L 3.9 MEQ/L 4.5 MEQ/L Chloride Level 105 MEQ/L 100 MEQ/L 99 MEQ/L Carbon Dioxide Level 29.2 MEQ/L 27.4 MEQ/L 32.7 MEQ/L Anion Gap 7 MEQ/L 11 MEQ/L 6 MEQ/L Estimat Glomerular Filtration Rate 119 ML/MIN 130 ML/MIN 102 ML/MIN Total Creatine Kinase 89891 U/L 88902 U/L 56309 U/L Creatine Kinase MB 1.2 NG/ML 0.6 NG/ML 0.9 NG/ML Creatine Kinase MB % 0.0 % 0.0 % 0.0 % Valproic Acid (Depakene) Level 37 MCG/ML Hepatitis A IgM Antibody NEGATIVE Hepatitis B Surface Antigen NEGATIVE Hepatitis B Core IgM Antibody NEGATIVE Hepatitis C Antibody NEGATIVE Gamma Glutamyl Transpeptidase 37 U/L Phosphorus Level 3.8 MG/DL Ammonia 20 MCMOL/L C-Reactive Protein 1.20 MG/DL Triglycerides Level 83 MG/DL Cholesterol Level 194 MG/DL LDL Cholesterol 104 MG/DL HDL Cholesterol 73.0 MG/DL Cholesterol/HDL Ratio 2.65 RATIO Vitamin B12 Level 734 PG/ML Free Thyroxine 1.00 NG/DL Thyroid Stimulating Hormone 3rd Gen 2.420 uIU/ML Test 11/19/17 11:29 White Blood Count 6.9 TH/MM3 Red Blood Count 5.30 MIL/MM3 Hemoglobin 16.2 GM/DL Hematocrit 46.5 % Mean Corpuscular Volume 87.7 FL Mean Corpuscular Hemoglobin 30.5 PG Mean Corpuscular Hemoglobin Concent 34.7 % Red Cell Distribution Width 13.1 % Platelet Count 272 TH/MM3 Mean Platelet Volume 7.8 FL Neutrophils (%) (Auto) 73.4 % Lymphocytes (%) (Auto) 14.8 % Monocytes (%) (Auto) 10.1 % Eosinophils (%) (Auto) 1.2 % Basophils (%) (Auto) 0.5 % Neutrophils # (Auto) 5.0 TH/MM3 Lymphocytes # (Auto) 1.0 TH/MM3 Monocytes # (Auto) 0.7 TH/MM3 Eosinophils # (Auto) 0.1 TH/MM3 Basophils # (Auto) 0.0 TH/MM3 CBC Comment DIFF FINAL Differential Comment Erythrocyte Sedimentation Rate 1 mm/hr Rapid Plasma Reagin NON-REACTIVE Imaging Last Impressions Liver Ultrasound 11/18/17 0000 Signed Impressions: Service Date/Time: Saturday, November 18, 2017 16:45 - CONCLUSION: Normal examination. Vasquez Gill MD Chest X-Ray 11/15/17 0000 Signed Impressions: Service Date/Time: Wednesday, November 15, 2017 14:57 - CONCLUSION: No acute disease. Galo Kearney MD FACR Brain MRI 11/15/17 0000 Signed Impressions: Service Date/Time: Wednesday, November 15, 2017 12:09 - CONCLUSION: 1. Normal examination. Juan David Kearney MD Orbit CT 11/14/17 0000 Signed Impressions: Service Date/Time: November 22:14 - CONCLUSION: 8mm area of soft tissue thickening adjacent to the lateral aspect of the preseptal left orbital globe. No fracture seen. Rodolfo Medley MD Head CT 11/14/17 0000 Signed Impressions: Service Date/Time: November 22:14 - CONCLUSION: 1. Negative noncontrast CT brain. Rodolfo Medley MD Cervical Spine CT 11/14/17 Signed Impressions: Service Date/Time: November 22:14 - CONCLUSION: Straightening of the cervical lordosis. Otherwise negative trauma CT cervical spine. Rodolfo Medley MD Objective Remarks GENERAL: Awake alert oriented 3 talkative and cooperative appears stated age SKIN: Warm and dry. Multiple tattoos Has had a new one placed on his right arm a few days ago HEAD: Atraumatic. Normocephalic. EYES: Pupils equal and round. No scleral icterus. No injection or drainage. Extraocular muscles intact ENT: No nasal bleeding or discharge. Mucous membranes pink and moist. Tongue is midline NECK: Trachea midline. No JVD. Supple CARDIOVASCULAR: Regular rate and rhythm. S1-S2 no S3 or S4 no heave or thrill or rub or gallop RESPIRATORY: No accessory muscle use. Clear to auscultation. Breath sounds equal bilaterally. GASTROINTESTINAL: Abdomen soft, non-tender, nondistended. Hepatic and splenic margins not palpable. MUSCULOSKELETAL: Extremities without clubbing, cyanosis, or edema. No obvious deformities. NEUROLOGICAL: Awake and alert. No obvious cranial nerve deficits. Motor grossly within normal limits. Five out of 5 muscle strength in the arms and legs. Normal speech. PSYCHIATRIC: Appropriate mood and affect; insight and judgment normal. Procedures none Medications and IVs Current Medications Lorazepam (Ativan Inj) 2 mg STK-MED ONCE .ROUTE Last administered on 11/14/17at 23:27; Start 11/14/17 at 23:20; Stop 11/14/17 at 23:21; Status DC Ondansetron HCl (Zofran Inj) 4 mg STK-MED ONCE .ROUTE Last administered on at 05:39; Start 11/15/17 at 05:31; Stop 11/15/17 at 05:32; Status DC Levetriacetam 500 mg/Sodium Chloride 105 ml @ 420 mls/hr BOLUS ONCE IV Last administered on 11/15/17at 06:28; Start 11/15/17 at 06:00; Stop 11/15/17 at 06:14; Status DC Sodium Chloride (NS Flush) 2 ml UNSCH PRN IV FLUSH FLUSH AFTER USING IV ACCESS ; Start 11/15/17 at 06:00 Sodium Chloride (NS Flush) 2 ml BID IV FLUSH Last administered on 11/18/17at 08: 06; Start 11/15/17 at 09:00 Lorazepam (Ativan Inj) 2 mg Q10M PRN IV PUSH SEE LABEL COMMENTS Last administered on 11/15/17at 06:17; Start 11/15/17 at 06:00 Acetaminophen (Tylenol) 650 mg Q4H PRN PO PAIN SCALE 1 TO 10 Last administered on 11/17/17at 20:29; Start 11/15/17 at 06:00 Levetriacetam (Keppra) 500 mg Q12HR PO ; Start 11/15/17 at 21:00; Stop 11/15/17 at 21:00; Status DC Lacosamide (Vimpat) 200 mg BID PO Last administered on 11/19/17at 09:07; Start 11/15/17 at 09:00 Non-Formulary Medication 200 mg BID PO ; Start 11/15/17 at 09:00; Stop 11/15/17 at 09:00; Status DC Non-Formulary Medication PTOWN-BRIVARACETAM 200MG PO DAILY DAILY PO ; Start 11/15 at 09:00; Stop 11/16/17 at 19:43; Status DC Divalproex Sodium (Depakote Er) 500 mg ONCE STAT PO Last administered on at 08:57; Start 11/15/17 at 08:17; Stop 11/15/17 at 08:21; Status DC Divalproex Sodium (Depakote Er) 500 mg HS PO Last administered on 11/16/17at 20: 19; Start 11/15/17 at 21:00; Stop 11/17/17 at 08:25; Status DC Sodium Chloride 1,000 ml @ 125 mls/hr Q8H IV Last administered on 11/16/17at 01 :48; Start 11/15/17 at 09:00; Stop 11/16/17 at 07:30; Status DC Gadodiamide (Omniscan Pf Inj) 14 ml STK-MED ONCE IV PUSH Last administered on at 12:00; Start 11/15/17 at 12:00; Stop 11/15/17 at 12:54; Status DC Influenza Virus Vaccine (Flu (Quadrivalent) Vaccine Inj) 0.5 ml ONCE ONCE IM Last administered on 11/16/17 09:25; Start 11/16/17 at 10:00; Stop 11/16/17 at 10:01; Status DC Multi-Ingredient Mouthwash/Gargle (Magic Mouthwash Adult Liq) 10 ml QID SWISH- SWAL Last administered on 11/19/17at 13:15; Start 11/15/17 at 21:00 Sodium Bicarbonate 100 meq/Potassium Chloride 20 meq/ Sodium Chloride 1,110 ml @ 175 mls/hr Q6H21M IV Last administered on 11/19/17at 10:07; Start 11/16/17 at 08:00 Calamine (Calamine Lotion) 1 applic Q1H PRN TOPICAL ITCHING AND/OR SUNBURN DISCOMF; Start 11/16/17 at 15:00 Non-Formulary Medication PTOWN-BRIVARACETAM 100 MG TABS-DOSE IS 200MG PO DAILY DAILY PO Last administered on 11/19/17at 09:10; Start 11/17/17 at 09:00 Potassium Chloride (KCl) 20 meq ONCE ONCE PO Last administered on 11/17/17at 15 :30; Start 11/17/17 at 14:15; Stop 11/17/17 at 14:16; Status DC A/P Problem List: (1) Recurrent seizures ICD Code: G40.909 - Epilepsy, unspecified, not intractable, without status epilepticus (2) Rhabdomyolysis ICD Code: M62.82 - Rhabdomyolysis (3) SIRS (systemic inflammatory response syndrome) ICD Code: R65.10 - Systemic inflammatory response syndrome (SIRS) of non- infectious origin without acute organ dysfunction Assessment and Plan 22-year-old male with history of seizures presents with seizure activity x2. The patient is visiting from [place] for spring. Recurrent Seizures with hx of Seizure Disorder: suspect exacerbated by recent alcohol binge. Patient reports compliance with medications. -Head CT and Brain MRI images reviewed, no acute findings -C-spine CT with no acute findings -Left Orbit CT with 8mm area of soft tissue thickening adjacent to lateral aspect of preseptal left orbital globe; no fracture -EEG negative -Neurology consulted -Continue patient's Briviact and Vimpat -Depakote 500mg hs added then discontinued by neurology secondary to abnormal liver function tests -Neuro checks, seizure precautions -Patient counseled on seizure precautions; patient does not drive Rhabdomyolysis: suspect secondary to seizures. This is worse. Increase sodium bicarb infusion to 170 cc an hour. Repeat BMP and CK in the morning -Check UA -Was worse yesterday await today's labs Labs CK have now come down half to 15,000 SIRS: patient meets SIRS criteria with WBC 21.6, temp 101.2, tachycardia HR 108. Need to rule out infectious source however no symptoms to suggest. SIRS may be secondary to seizure activity. Resolved -Check UA. Negative CXR -Monitor CBC and vitals Alcohol Use: chronic -counseled on cessation, especially with seizures as above Transaminitis: no previous labs to compare. Suspect secondary to recent alcohol use and rhabdomyolysis -continue IVF -avoid alcohol -LFTs worse. Depakote discontinued. Check hepatitis profile Will consult gastroenterology DVT Prophylaxis: teds/SCDs Discharge Planning Pending improvement on his rhabdomyolysis Galo Miller DO Nov 19, 2017 14:50
[2017-11-20] VITALS (7 sets, daily range): BP systolic 111–137; BP diastolic 57–71; PULSE 64–97; RESP 16–18; TEMP 98–98.3; O2SAT 98
[2017-11-20] MEDS: SODIUM BICARBONATE 8.4% INJ 100 MEQ, POTASSIUM CHLORIDE INJ 20 MEQ in SODIUM CHLOR 0.45... IV SCH ×2 (04:55→11:20)
--- NOTE | 2017-11-20 07:27 | HHI.PR ---
Subjective Remarks no more sz still Objective Vital Signs Date Time Temp Pulse Resp B/P (MAP) Pulse Ox O2 Delivery O2 Flow Rate FiO2 11/20/17 04:27 98.3 96 17 126/63 (84) 98 11/20/17 04:04 68 11/20/17 00:41 98.0 73 16 111/57 (75) 98 11/20/17 00:00 64 11/19/17 20:54 98.0 93 16 127/81 (96) 98 11/19/17 19:58 93 11/19/17 16:01 98.2 78 18 123/60 (81) 97 11/19/17 16:00 81 11/19/17 12:00 69 11/19/17 11:18 97.9 77 18 133/74 (93) 98 11/19/17 07:30 84 I/O 11/19/17 11/19/17 11/19/17 11/20/17 11/20/17 11/20/17 07:00 15:00 23:00 07:00 15:00 23:00 Output Total 800 ml Balance -800 ml Output Urine Total 800 ml Result Diagram: 11/19/17 1129 11/19/17 0734 Objective Remarks awake alert echymoses left eye vff face sym no change still Assessment and Plan Assessment and Plan imp mri nl eeg nl labs ok x lft mild inc and his lft inc on vpa 500 hs and vimpat and briviat i think he could probably in future come off vimpat and push up vpa dose/level as o/p up [place] 11/17/17 doing well neurowise his lft are increasing and i wonder if not from the vpa so i dced it and tomorrow would like to start on low dose lamictal 25 bid but with inc lft better that they start up [place] he is supposed to see the neuro people [place] next week they can adjust his meds i think best thing is for him to stay and have lft rechecked in am so we are sure not something more serious going on and then will need them rechecked saturday also up [place] and fu by up there 11/18/17 lft pend this am yest cpk up even more unclear why vpa off see what numbers look like today keep ivf on 11/19/17 yest numbers dontinue to climb unclear why neuro fabian stable other labs i ordered now - 11/20/17 no change cpk coming down yest but liver up recheck today other labs ok meds he is on for sz dont usually effect lfts Victor Manuel Patel MD Nov 20, 2017 07:27
[2017-11-20] MEDS: LACOSAMIDE 100 MG TAB PO SCH (08:39)
[2017-11-20] MEDS: [UNRECOGNIZED DRUG - OTHER] PO SCH (08:39)
[2017-11-20] MEDS: SODIUM CHLORIDE 0.9% FLUSH 10 ML FLUSH IV FLUSH SCH (08:39)
[2017-11-20] MEDS: BRIVARACETAM 100 MG PO SCH (08:39)
[2017-11-20] MEDS: NYSTAT/DIPHENHY/LIDO MOUTHWASH (Adult) 120ML SWISH-SWAL SCH (08:40)
[2017-11-20 10:16] LABS: AUTOMATED NEUTROPHIL # 4.6 TH/MM3 (1.8-7.7); BASOPHIL % 0.4 % (0.0-2.0); EOSINOPHIL # 0.1 TH/MM3 (0-0.4); HEMATOCRIT 44.9 % (39.0-51.0); HEMOGLOBIN 15.5 GM/DL (13.0-17.0); LYMPH % 11.5 % (9.0-44.0); LYMPHOCYTE # 0.7 TH/MM3 (1.0-4.8); MEAN CELL VOLUME 87.1 FL (80.0-100.0); MEAN CORPUSCULAR HEMOGLOBIN 30.1 PG (27.0-34.0); MEAN CORPUSCULAR HGB CONC 34.5 % (32.0-36.0); MEAN PLATELET VOLUME 7.7 FL (7.0-11.0); MONOCYTE # 0.8 TH/MM3 (0-0.9); NEUT % 74.1 % (16.0-70.0); PLATELET COUNT 247 TH/MM3 (150-450); RED BLOOD COUNT 5.16 MIL/MM3 (4.50-5.90); RED CELL DISTRIBUTION WIDTH 12.9 % (11.6-17.2); WHITE BLOOD COUNT 6.2 TH/MM3 (4.0-11.0)
--- NOTE | 2017-11-20 10:35 | HHI.GIFU ---
Subjective Remarks Pt pacing room. In NAD. eager for d/c. (Tiana De Leon) Objective Vitals I&O Vital Signs Date Time Temp Pulse Resp B/P (MAP) Pulse Ox O2 Delivery O2 Flow Rate FiO2 11/20/17 07:36 98.2 80 18 136/71 (92) 98 11/20/17 07:15 84 11/20/17 04:27 98.3 96 17 126/63 (84) 98 11/20/17 04:04 68 11/20/17 00:41 98.0 73 16 111/57 (75) 98 11/20/17 00:00 64 11/19/17 20:54 98.0 93 16 127/81 (96) 98 11/19/17 19:58 93 11/19/17 16:01 98.2 78 18 123/60 (81) 97 11/19/17 16:00 81 11/19/17 12:00 69 11/19/17 11:18 97.9 77 18 133/74 (93) 98 I/O 11/19/17 11/19/17 11/19/17 11/20/17 11/20/17 11/20/17 07:00 15:00 23:00 07:00 15:00 23:00 Output Total 800 ml Balance -800 ml Output Urine Total 800 ml Laboratory Laboratory Tests Test 11/19/17 11:29 11/20/17 09:29 White Blood Count 6.9 6.2 Red Blood Count 5.30 5.16 Hemoglobin 16.2 15.5 Hematocrit 46.5 44.9 Mean Corpuscular Volume 87.7 87.1 Mean Corpuscular Hemoglobin 30.5 30.1 Mean Corpuscular Hemoglobin Concent 34.7 34.5 Red Cell Distribution Width 13.1 12.9 Platelet Count 272 247 Mean Platelet Volume 7.8 7.7 Neutrophils (%) (Auto) 73.4 74.1 Lymphocytes (%) (Auto) 14.8 11.5 Monocytes (%) (Auto) 10.1 13.0 Eosinophils (%) (Auto) 1.2 1.0 Basophils (%) (Auto) 0.5 0.4 Neutrophils # (Auto) 5.0 4.6 Lymphocytes # (Auto) 1.0 0.7 Monocytes # (Auto) 0.7 0.8 Eosinophils # (Auto) 0.1 0.1 Basophils # (Auto) 0.0 0.0 CBC Comment DIFF FINAL DIFF FINAL Differential Comment Erythrocyte Sedimentation Rate 1 Rapid Plasma Reagin NON-REACTIVE Imaging Last Impressions Liver Ultrasound 11/18/17 0000 Signed Impressions: Service Date/Time: Saturday, November 18, 2017 16:45 - CONCLUSION: Normal examination. Vasquez Gill MD Chest X-Ray 11/15/17 0000 Signed Impressions: Service Date/Time: Wednesday, November 15, 2017 14:57 - CONCLUSION: No acute disease. Galo Kearney MD FACR Brain MRI 11/15/17 0000 Signed Impressions: Service Date/Time: Wednesday, November 15, 2017 12:09 - CONCLUSION: 1. Normal examination. Juan David Kearney MD Orbit CT 11/14/17 0000 Signed Impressions: Service Date/Time: November 22:14 - CONCLUSION: 8mm area of soft tissue thickening adjacent to the lateral aspect of the preseptal left orbital globe. No fracture seen. Rodolfo Medley MD Head CT 11/14/17 0000 Signed Impressions: Service Date/Time: November 22:14 - CONCLUSION: 1. Negative noncontrast CT brain. Rodolfo Medley MD Cervical Spine CT 11/14/17 0000 Signed Impressions: Service Date/Time: November 22:14 - CONCLUSION: Straightening of the cervical lordosis. Otherwise negative trauma CT cervical spine. Rodolfo Medley MD Physical Exam HEENT: PERRL; normocephalic; atraumatic; no jaundice. CHEST: respirations unlabored CARDIAC: RRR ABDOMEN: Soft, nondistended, nontender; no hepatosplenomegaly; EXTREMITIES: No clubbing, cyanosis, or edema. SKIN: Normal; no rash; no jaundice. APPEALS WRITER: No focal deficits; alert and oriented times three. (Tiana De Leon) Assessment and Plan Plan ASSESSMENT - elevated LFTs - unclear etiology ETOH vs seizure. hepatitis panel negative. US liver normal. AST> ALT likely 2/2 ETOH but will get liver w/u rule out other cause - rhabdomyolysis, seizures, SIRS per attending 11/20/17 pt eager to go home, no GI complaints. unfortunately today'slabs still pending. PLAN - f/u with GI in [place], will need to get results of liver w/u we ordered from [facility] [place] - [facility] - supportive care - ok to d/c from GI standpoint if his LFTs are stable or trending down - d/w primary pt seen by myself and Dr Webster and this note is on his behalf (Tiana De Leon) Physician Comments Agree with above assessment and plan. Complete abstinence from alcohol and will need follow up afterward. (Olivia Webster MD) Tiana De Leon Nov 20, 2017 10:35 Olivia Webster MD Nov 20, 2017 12:18
[2017-11-20 10:41] LABS: AST (GOT) 191 U/L (15-37); BICARBONATE 28.8 MEQ/L (21.0-32.0); BLOOD UREA NITROGEN 7 MG/DL (7-18); CALCIUM 9.3 MG/DL (8.5-10.1); CHLORIDE 99 MEQ/L (98-107); CREATININE 0.86 MG/DL (0.60-1.30); GLOMERULAR FILTRATION RATE 111 ML/MIN (>89); GLUCOSE,RANDOM 91 MG/DL (74-106); MAGNESIUM 1.8 MG/DL (1.5-2.5); PHOSPHORUS 2.9 MG/DL (2.5-4.9); SODIUM (NA) 136 MEQ/L (136-145)
[2017-11-20 10:42] LABS: ALT (GPT) 221 U/L (12-78); IRON (FE) 37 MCG/DL (65-175)
[2017-11-20 10:55] LABS: % SATURATION IRON PROFILE 9.9 % (20-50); ALKALINE PHOSPHATASE 86 U/L (45-117); FERRITIN 314 NG/ML (26-388); TOTAL BILIRUBIN ADULT 0.5 MG/DL (0.2-1.0); TOTAL IRON BINDING CAPACITY 372 MCG/DL (250-450); TOTAL PROTEIN 7.5 GM/DL (6.4-8.2)
[2017-11-20] MEDS ORDERED: MAGICADU2 SWISH-SWAL (14:04)
[2017-11-20 20:14] LABS: ANA SCREEN NEG (NEG)
[2017-11-21 13:53] LABS: ALPHA-1-ANTITRYPSIN 144 mg/dL (100 - 190)
[2017-11-21 14:08] LABS: SMOOTH MUSCLE TOTAL AUTOABS Negative (Negative)
[2017-11-21 15:25] LABS: METHYLMALONIC ACID 0.1 nmol/mL (<=0.40)
[2017-11-23 17:53] LABS: CERULOPLASMIN 26 mg/dL (18-36)
[2017-11-24 23:52] LABS: MITOCHONDRIAL ABS LESS THAN 20.0 U (<=20.0)
== END 2017-11-20 18:29 | disposition home or self-care (01) | DRG 101 ==
LOC: NEPE 21:49 → NEDA 11-15 06:02 → NEDH 11-15 14:38 → NEDA 11-15 17:27 → NEPHCDU 11-15 17:50 → OBSVTOIN 11-16 10:56
PROVIDERS: ADMIT Hospitalist; ATTEND Hospitalist
DX: G40.909 Epilepsy, unspecified, not intractable, without status epilepticus (principal); M62.82 Rhabdomyolysis; R65.10 Systemic inflammatory response syndrome (SIRS) of non-infectious origin without acute organ dysfunction; S00.12XA Contusion of left eyelid and periocular area, initial encounter; R74.0 Nonspecific elevation of levels of transaminase and lactic acid dehydrogenase [LDH]; R00.0 Tachycardia, unspecified; R94.5 Abnormal results of liver function studies; Z23 Encounter for immunization
CPT/HCPCS: 70450; 70480; 70553; 71045; 72125; 76705; 80053; 80061; 80074; 80164; 80307; 82103; 82105; 82140; 82390; 82550; 82552; 82607; 82728; 82977; 83520; 83540; 83550; 83690; 83735; 83921; 84100; 84207; 84425; 84439; 84443; 85007; 85025; 85027; 85652; 86038; 86140; 86255; 86592; 90686; 95819; 96361; 96374; 96375; 96376; A9579; G0378; J1953; J2060; J2405; J3480; J7030; Q2038